=== PATIENT | female | born 1980 | race Caucasian/White ===

== ENCOUNTER 2023-07-22 11:31 | Inpatient (IN) ==
[2023-07-22] MEDS: SODIUM CHLORIDE 0.9% 1,000 ML IV SCH (11:49)
--- NOTE | 2023-07-22 12:00 | Emergency Department Note ---
Impression & Plan Sepsis, Hypomagnesemia, Rigors, Abdominal pain ED Provider Note Provider: Aron Squires MD DATE OF SERVICE: 07/22/2023 CHIEF COMPLAINT: Abdominal pain, fever, chills HISTORY OF PRESENT ILLNESS: Patient is a 42-year-old female past medical history significant for uterine ablation on 07/17 performed without complication at [facility] with [facility]. On Sunday developed abdominal pain seen in the ER at [facility] by report. States she had a CT and things were okay and she went home. Was instantly noted to have ovarian cyst by her report. Into bed yesterday but today significant worsened abdominal pain throughout the day. Oxycodone minimally helped last night but she did not sleep well. Developed uncontrollable shaking this afternoon and felt quite warm. Febrile upon arrival. Denies cough or cold symptoms. Denies significant chest pain. Pain in the mid upper abdomen out of the lower abdomen. Denies significant vaginal bleeding or cramping. Pain does radiate to the back to some degree. Feels sore and has myalgias diffusely. No trauma or falls. Did have a bit of food today. Did have some ibuprofen around 7 AM. Does report some headache. PAST MEDICAL HISTORY: As noted above MEDICATIONS: Reviewed home meds SOCIAL HISTORY: , non-smoker PHYSICAL EXAM: GENERAL: alert and oriented fatigued in appearance at bedside Head: normocephalic and atraumatic EYES: No injection, discharge or icterus. NECK: Trachea midline. ENT: Mucous membranes pink and moist. LUNGS: Airway patent. No retractions. Breath sounds clear HEART: Regular rate and rhythm. No chest wall tenderness ABDOMEN: Soft but diffusely tender particular in the lower abdomen. SKIN: Acyanotic, warm, dry, without rashes EXTREMITIES: Without swelling, tenderness or deformity NEUROLOGICAL: No focal deficits moves all extremities. No aphasia. No facial droop or slurred speech. EK bpm normal sinus rhythm. No PVC or PAC. No acute ST segment elevation or depression with a QTc of 390 CONTINUOUS CARDIAC MONITORING: was ordered and showed a heart rate of 90s-100s bpm in sinus tachycardia is normal sinus rhythm Patient's laboratory studies and imaging reviewed. Differential includes Appendicitis, ovarian cyst, ovarian torsion, ectopic , TOA, PID, infections, diverticulitis, UTI, obstruction, mesenteric ischemia, aortic pathology, inflammatory bowel disease, renal colic, PUD, pancreatitis, biliary pathology, hernia, volvulus, constipation, as well as other pathologies. IMPRESSION/MEDICAL DECISION MAKING: Febrile upon arrival. Borderline tachycardia. Severe abdominal pain. Describes symptoms consistent with rigors. Recent uterine ablation. No laparoscopy or laparotomy or abdominal wounds. Denies significant bleeding here. Abdominal pain however and concerning for possible intra-abdominal infection. Denies given respiratory issues and not hypoxic. Given IV fluids as well as Tylenol for fever and fentanyl for pain. Blood cultures lactate ordered as well as labs. [id number] blood work obtained and emergently sent for CT scan of the abdomen pelvis to further elucidate symptoms and look for any possible abscess or etiology of her symptoms. Records via case management from the [facility] system obtained. Sunday at [facility] the patient had an abdominal CT reporting showing nonspecific likely enteritis with a small amount of free fluid in the pelvis and an abdominal ultrasound showing a complex fluid in the uterine cavity and a small amount of likely physiological free fluid. Patient white blood cell count of 12 at that time. Operative report from Dr. Benavides indicates the patient had removal of IUD, D&C with hysteroscopy as well as a MyoSure and NovaSure ablation on the third. Blood work here today without significant anemia hemoglobin of 12.6 on the formal CBC. Leukopenia of 2.08 and given the patient's fever and this I am concerned she has sepsis. Seems more than 30 mL/kg IV fluid. Rigors are concerning for possible bacteremia. Discussed with pharmacy and initially will cover with clindamycin given allergy profile and possible intra-abdominal source. It appears the patient according to pharmacy also has some cephalosporin prescriptions in the past and will trial a course of cefepime for tract including pseudomonal coverage. Procalcitonin elevated at 1.15. Dose of vancomycin to be given as well. Mild hypomagnesemia and given some supplementation. No severe electrolyte abnormalities otherwise or signs of renal dysfunction. Urinalysis appears more contaminated than truly infected. CT abdomen pelvis today per radiology shows evidence of the endometrium for ablation with right ovarian cyst. Clinically I do not believe this represents torsion at this time. Patient on reassessment slightly improving temperature no longer with rigors blood pressure around 100 systolic. Denies significant abdominal pain at this point. Did reach out discussed with [facility] RN PATIENT CARE on- call here given her recent postoperative state from the uterine ablation. Do have significant concern for sepsis as well as possible bacteremia given her presentation with rigors and fever. Again does not appear to be suffering from primary pulmonary complaint and does not appear meningitic. Given her labs and presentation is she requires further care and observation here at the hospital pending her blood cultures further elucidation of the exact etiology of her sepsis. Hospitalist contacted. DIAGNOSIS: Sepsis, lower abdominal pain, rigors, hypomagnesemia, leukopenia, elevated procalcitonin DISPOSITION: Hospitalist will evaluate Patient was agreeable with this plan. Critical Care I have personally spent 37 minutes of critical care time in the direct management of this patient. This includes bedside care, interpretation of diagnostic studies, and testing, discussion with consultants, patient, and family members, and other required patient management activities. These 37 minutes is in excess of all separately billable procedures. Past Med/Surg History Social History Smoking Status: Never smoker Preferred Language: Pakistani Feels Safe at Home: Yes Allergies Allergies Allergy/AdvReac Type Severity Reaction Status Date / Time amoxicillin Allergy Hives Verified 07/22/23 11:49 erythromycin base Allergy Hives Verified 07/22/23 11:49 Penicillins Allergy Hives Verified 07/22/23 11:49 Results & Data (ED) Vital Signs Vital Signs - 24 hr 07/22/23 11:35 07/22/23 11:36 07/22/23 11:36 Temperature 39 C H Temperature Source Oral Pulse Rate 98 H 99 H Pulse Rate from SpO2 Sensor Pulse Rhythm Regular Pulse Strength Normal Respiratory Rate 18 21 Respiratory Effort / Characteristics Non-Labored Respiratory Depth Normal Respiratory Pattern Regular Blood Pressure 127/85 127/85 Blood Pressure Mean 93 99 Blood Pressure Position Lying Pulse Oximetry 98 Oxygen Delivery Method Room Air Sepsis Recent Fever Within 48 Hours Yes Sepsis New/Unexplained Change in Mental Status No Sepsis Action Taken by Nursing No Action Required 07/22/23 11:38 07/22/23 11:50 07/22/23 12:00 Temperature Temperature Source Pulse Rate 100 H 93 H 102 H Pulse Rate from SpO2 Sensor Pulse Rhythm Pulse Strength Respiratory Rate 27 H 18 Respiratory Effort / Characteristics Respiratory Depth Respiratory Pattern Blood Pressure Blood Pressure Mean Blood Pressure Position Pulse Oximetry Oxygen Delivery Method Sepsis Recent Fever Within 48 Hours Sepsis New/Unexplained Change in Mental Status Sepsis Action Taken by Nursing 07/22/23 12:10 07/22/23 12:20 04/07/24 12:30 Temperature Temperature Source Pulse Rate 105 H 103 H 96 H Pulse Rate from SpO2 Sensor 97 H Pulse Rhythm Pulse Strength Respiratory Rate 19 17 17 Respiratory Effort / Characteristics Respiratory Depth Respiratory Pattern Blood Pressure Blood Pressure Mean Blood Pressure Position Pulse Oximetry 93 Oxygen Delivery Method Sepsis Recent Fever Within 48 Hours Sepsis New/Unexplained Change in Mental Status Sepsis Action Taken by Nursing 07/22/23 12:52 07/22/23 13:00 07/22/23 13:02 Temperature 38.4 C H Temperature Source Oral Pulse Rate 109 H 97 H Pulse Rate from SpO2 Sensor 99 H Pulse Rhythm Pulse Strength Respiratory Rate 12 22 Respiratory Effort / Characteristics Respiratory Depth Respiratory Pattern Blood Pressure 100/59 L Blood Pressure Mean 72 Blood Pressure Position Pulse Oximetry 92 Oxygen Delivery Method Sepsis Recent Fever Within 48 Hours Sepsis New/Unexplained Change in Mental Status Sepsis Action Taken by Nursing Laboratory Data 07/22/23 11:49 07/22/23 11:49 Lab Results 07/22/23 07/22/23 07/22/23 Range/Units 11:49 11:50 12:01 WBC 2.08 L (4.8-10.8) K/ul RBC 4.16 L (4.20-5.40) M/uL Hgb 12.6 (12.0-16.0) g/dl POC Hgb 9.5 L (12.0-16.0) g/dl Hct 37.1 (37.0-47.0) % POC Hct 28 L (37-47) % MCV 89.2 (80.0-100.0) fL MCH 30.3 (25.0-34.0) pg MCHC 34.0 (32.0-36.0) g/dL RDW Std Deviation 41.1 (36.4-46.3) fL RDW Coeff of Rigoberto 12.5 (11.5-14.5) % Plt Count 138 (130-400) K/uL MPV 11.0 (9.4-12.4) fL Immature Gran % (Auto) 0.5 % Neut % (Auto) 86.9 % Lymph % (Auto) 11.1 % Winn % (Auto) 0.5 % Eos % (Auto) 0.0 % Baso % (Auto) 1.0 % Neut # (Auto) 1.81 (1.40-6.50) K/uL Lymph # (Auto) 0.23 L (1.20-3.40) K/uL Winn # (Auto) 0.01 L (0.11-0.59) K/uL Eos # (Auto) 0.00 (0.00-0.50) K/uL Baso # (Auto) 0.02 (0.00-0.20) K/uL Immature Gran # (Auto) 0.01 (0.01-0.20) K/uL Toxic Vacuolation 1+ POC Sodium 141 (135-144) mmol/L Sodium 136 (136-145) mmol/L POC Potassium 3.0 L (3.3-5.0) mmol/L Potassium 3.7 (3.5-5.1) mmol/L POC Chloride 107 (101-112) mmol/L Chloride 104 (98-107) mmol/L Carbon Dioxide 26 (21-32) mmol/L POC Total CO2 19 L (24-31) mmol/L Anion Gap 6 (3-11) POC Anion Gap 19.0 (16-25) mmol/L POC BUN 4 L (7-18) mg/dl BUN 7 (6-23) mg/dl Creatinine 0.60 (0.6-1.2) mg/dl POC Creatinine 0.4 L (0.6-1.3) mg/dl Est Cr Clr Drug Dosing 116.2 ml/min Est GFR ( Amer) 132.1 ml/min Est GFR (Non-Af Amer) 114.0 ml/min BUN/Creatinine Ratio 11.7 (10-20) Glucose 96 (70-99(Fasting)) mg/dl POC Glucose (other) 81 (70-99) mg/dl Lactate 1.3 (0.4-2.0) mmol/L Calcium 9.2 (8.6-10.3) mg/dl POC Ioniz Calcium Lucien 1.04 L (1.12-1.32) mmol/l Magnesium 1.5 L (1.7-2.4) mg/dl Total Bilirubin 0.4 (0.2-1.0) mg/dl Direct Bilirubin 0.0 (0-0.2) mg/dl AST 31 (13-39) U/L ALT 31 (7-52) U/L Alkaline Phosphatase 51 (34-104) U/L Troponin I High Sens 5.3 (0-14) pg/ml Total Protein 7.6 (6.0-8.3) gm/dl Albumin 4.2 (3.4-5.0) gm/dl Lipase 17 (11-82) U/L Procalcitonin 1.15 H (0-0.5) ng/ml HCG, Qual Negative (Negative) Urine Color Urine Appearance (Clear) Urine pH (4.5-7.5) Ur Specific Girard (1.000-1.030) Urine Protein (Negative) Urine Glucose (UA) (Negative) Urine Ketones (Negative) Urine Blood (Negative) Urine Nitrite (Negative) Urine Bilirubin (Negative) Urine Urobilinogen (Negative) Ur Leukocyte Esterase (Negative) Urine WBC (Auto) (0-5) /hpf Urine RBC (Auto) (0-4) /hpf U Hyaline Cast (Auto) (0-5) /lpf U Epithel Cells (Auto) (0-5) /lpf Urine Bacteria (Auto) (Negative) 07/22/23 Range/Units 12:53 WBC (4.8-10.8) K/ul RBC (4.20-5.40) M/uL Hgb (12.0-16.0) g/dl POC Hgb (12.0-16.0) g/dl Hct (37.0-47.0) % POC Hct (37-47) % MCV (80.0-100.0) fL MCH (25.0-34.0) pg MCHC (32.0-36.0) g/dL RDW Std Deviation (36.4-46.3) fL RDW Coeff of Rigoberto (11.5-14.5) % Plt Count (130-400) K/uL MPV (9.4-12.4) fL Immature Gran % (Auto) % Neut % (Auto) % Lymph % (Auto) % Winn % (Auto) % Eos % (Auto) % Baso % (Auto) % Neut # (Auto) (1.40-6.50) K/uL Lymph # (Auto) (1.20-3.40) K/uL Winn # (Auto) (0.11-0.59) K/uL Eos # (Auto) (0.00-0.50) K/uL Baso # (Auto) (0.00-0.20) K/uL Immature Gran # (Auto) (0.01-0.20) K/uL Toxic Vacuolation POC Sodium (135-144) mmol/L Sodium (136-145) mmol/L POC Potassium (3.3-5.0) mmol/L Potassium (3.5-5.1) mmol/L POC Chloride (101-112) mmol/L Chloride (98-107) mmol/L Carbon Dioxide (21-32) mmol/L POC Total CO2 (24-31) mmol/L Anion Gap (3-11) POC Anion Gap (16-25) mmol/L POC BUN (7-18) mg/dl BUN (6-23) mg/dl Creatinine (0.6-1.2) mg/dl POC Creatinine (0.6-1.3) mg/dl Est Cr Clr Drug Dosing ml/min Est GFR ( Amer) ml/min Est GFR (Non-Af Amer) ml/min BUN/Creatinine Ratio (10-20) Glucose (70-99(Fasting)) mg/dl POC Glucose (other) (70-99) mg/dl Lactate (0.4-2.0) mmol/L Calcium (8.6-10.3) mg/dl POC Ioniz Calcium Lucien (1.12-1.32) mmol/l Magnesium (1.7-2.4) mg/dl Total Bilirubin (0.2-1.0) mg/dl Direct Bilirubin (0-0.2) mg/dl AST (13-39) U/L ALT (7-52) U/L Alkaline Phosphatase (34-104) U/L Troponin I High Sens (0-14) pg/ml Total Protein (6.0-8.3) gm/dl Albumin (3.4-5.0) gm/dl Lipase (11-82) U/L Procalcitonin (0-0.5) ng/ml HCG, Qual (Negative) Urine Color Yellow Urine Appearance Clear (Clear) Urine pH 7.0 (4.5-7.5) Ur Specific Girard 1.013 (1.000-1.030) Urine Protein Negative (Negative) Urine Glucose (UA) Negative (Negative) Urine Ketones Negative (Negative) Urine Blood 1+ H (Negative) Urine Nitrite Negative (Negative) Urine Bilirubin Negative (Negative) Urine Urobilinogen Negative (Negative) Ur Leukocyte Esterase Trace H (Negative) Urine WBC (Auto) 5-10 H (0-5) /hpf Urine RBC (Auto) 0-4 (0-4) /hpf U Hyaline Cast (Auto) 0 (0-5) /lpf U Epithel Cells (Auto) >30 H (0-5) /lpf Urine Bacteria (Auto) Negative (Negative) Administered Medications Discontinued Medications Fentanyl Citrate (Fentanyl Citrate Pf 100 Mcg/2 Ml Vial) 50 mcg IV NOW STA Stop: 07/22/23 12:00 Last Admin: 07/22/23 12:04 Dose: 50 mcg Documented By: NM Sodium Chloride (Nss) 1,000 mls @ 999 mls/hr IV .Q1H1M RAJ Stop: 07/22/23 12:45 Last Infusion: 07/22/23 12:50 Dose: Infused Documented By: Admin: 07/22/23 11:49 Dose: 999 mls/hr Documented By: NM Sodium Chloride (Nss) 1,000 mls @ 999 mls/hr IV .Q1H1M ONE Stop: 07/22/23 12:59 Last Infusion: 07/22/23 13:16 Dose: Infused Documented By: Admin: 07/22/23 12:05 Dose: 999 mls/hr Documented By: NM Acetaminophen (Ofirmev) 1,000 mg in 100 mls @ 400 mls/hr IV NOW STA Stop: 07/22/23 12:13 Last Infusion: 07/22/23 12:25 Dose: Infused Documented By: [facility] [place] Admin: 07/22/23 12:04 Dose: 400 mls/hr Documented By: NM Clindamycin Phosphate (Cleocin/D5w) 900 mg in 50 mls @ 100 mls/hr IV NOW ONE Stop: 07/22/23 13:00 Last Infusion: 07/22/23 13:31 Dose: Infused Documented By: Admin: 07/22/23 13:01 Dose: 100 mls/hr Documented By: NM Cefepime HCl (Maxipime) 2,000 mg in 20 mls @ 5 mls/min IV NOW STA; Protocol Stop: 07/22/23 12:43 Last Admin: 07/22/23 12:55 Dose: 5 mls/min Documented By: NM Magnesium Sulfate/Dextrose (Magnesium Sulfate / D5w) 1 gm in 100 mls @ 200 mls/hr IV Q30M RAJ Stop: 07/22/23 13:59 Last Admin: 07/22/23 13:35 Dose: 200 mls/hr Documented By: Infusion: 07/22/23 13:35 Dose: Infused Documented By: Admin: 07/22/23 13:09 Dose: 200 mls/hr Documented By: CIARA Ioversol (Optiray 320 100ml) 93 ml IV ONCE ONE Stop: 07/22/23 12:46 Last Admin: 07/22/23 12:45 Dose: 93 ml Documented By: EDK Imaging Data Radiologist's Impression: Chest X-Ray 07/22/23 11:45 XR chest 1V portable CLINICAL HISTORY: Sepsis TECHNIQUE: Single frontal radiograph of the chest was obtained. Comparison: None available at the time of this dictation. FINDINGS: No lines and tubes are seen. The cardiomediastinal silhouette is normal. Prominence and cephalization of the vasculature is seen. No evidence of pleural effusion or pneumothorax. IMPRESSION: No acute abnormalities and in particular no radiographic evidence of pneumonia. Mild pulmonary vascular congestion. ACT 112: Negative or not required by law. Electronically signed by: Bart Ashley M.D. 07/22/2023 2:01 PM Abdomen/Pelvis CT 07/22/23 12:05 CT abd pelvis IV con only CLINICAL HISTORY: fever, severe abd pain, s/p uterine ablation tuesd TECHNIQUE: Helical axial images of the abdomen and pelvis were obtained and displayed. Automated dose lowering techniques and/or adjustment according to patient size were utilized for this exam. This exam was performed with intravenous contrast. CT DOSE: 741.29 mGy.cm COMPARISON: None available at the time of this dictation. FINDINGS: Lower chest: Bilateral breast implants are seen. Minimal atelectasis is seen. Liver: Unremarkable. No focal lesions are seen. Gallbladder and biliary tree: No calcified gallstones. Normal caliber wall. No intra- or extrahepatic biliary ductal dilation. Pancreas: Unremarkable, no focal lesions. Spleen: Unremarkable. Adrenals: Unremarkable. Kidneys and ureters: Unremarkable. Bladder: Unremarkable. Reproductive organs: Thickening of the endometrium is noted measuring up to 24 mm. Rim-enhancing lesion is seen in the right adnexa. Bowel: The appendix is normal. Lymph nodes Retroperitoneal: Unremarkable. Pelvic: Unremarkable. Mesenteric: Unremarkable. Peritoneum: Mild free fluid is seen. Vessels: Unremarkable. Abdominal wall: Unremarkable. Bones: Unremarkable. IMPRESSION: Thickened endometrium is likely secondary to recent uterine ablation. Right adnexal lesion likely represents an involuting ovarian cyst. No acute abnormalities are seen. ACT 112: Negative or not required by law. Electronically signed by: Bart Ashley M.D. 07/22/2023 1:31 PM Discharge Plan Visit Data Chief Complaint: Illness ED Provider: Aron Squires Discharge Problem: Sepsis, Hypomagnesemia, Rigors, Abdominal pain Patient Disposition: Being Evaluated by Hospitalist Forms Stand Alone Forms: [facility] Referrals Referrals: PCP,NO [Physician] -
[2023-07-22] MEDS: ACETAMINOPHEN 1,000 MG/100 ML VIAL IV STA (12:04)
[2023-07-22] MEDS: fentaNYL citrate PF 100 MCG/2 ML VIAL IV STA (12:04)
[2023-07-22] MEDS: SODIUM CHLORIDE 0.9% 1,000 ML IV ONE (12:05)
[2023-07-22 12:17] LABS: iSTAT Creatinine 0.4 mg/dl (0.6-1.3); iSTAT Hemoglobin 9.5 g/dl (12.0-16.0); iSTAT Ionized Calcium 1.04 mmol/l (1.12-1.32)
[2023-07-22 12:26] LABS: Hematocrit (blood only) 37.1 % (37.0-47.0); Hemoglobin 12.6 g/dl (12.0-16.0); Mean Corpuscular Hemoglobin 30.3 pg (25.0-34.0); Mean Corpuscular Volume 89.2 fL (80.0-100.0); Platelet Count 138 K/uL (130-400); RDW Coefficient of Variation 12.5 % (11.5-14.5); RDW Standard Deviation 41.1 fL (36.4-46.3); Red Blood Count 4.16 M/uL (4.20-5.40); White Blood Count 2.08 K/ul (4.8-10.8)
[2023-07-22 12:45] LABS: Albumin Level 4.2 gm/dl (3.4-5.0); BUN Creatinine Ratio 11.7 (10-20); Bilirubin,Total 0.4 mg/dl (0.2-1.0); Calcium 9.2 mg/dl (8.6-10.3); Creatinine Clr Calc Pharmacy 116.2 ml/min; Est GFR (African American) 132.1 ml/min; Magnesium 1.5 mg/dl (1.7-2.4); Potassium 3.7 mmol/L (3.5-5.1); Total Protein 7.6 gm/dl (6.0-8.3)
[2023-07-22] MEDS: OPTIRAY 320 100ml IV ONE (12:45)
[2023-07-22 12:51] LABS: Troponin I High Sensitivity 5.3 pg/ml (0-14)
[2023-07-22 12:51] LABS: Pregnancy Test, Serum Negative (Negative)
[2023-07-22 12:53] LABS: Basophils # (auto) 0.02 K/uL (0.00-0.20); Immature Granulocytes # (auto) 0.01 K/uL (0.01-0.20); Immature Granulocytes % (auto) 0.5 %; Lymphocytes # (auto) 0.23 K/uL (1.20-3.40); Lymphocytes % (auto) 11.1 %; Monocytes # (auto) 0.01 K/uL (0.11-0.59); Monocytes % (auto) 0.5 %; Neutrophils # (auto) 1.81 K/uL (1.40-6.50); Neutrophils % (auto) 86.9 %; Toxic Vacuolation 1+
[2023-07-22] MEDS: CEFEPIME 2,000 MG/20 ML VIAL IV STA (12:55)
[2023-07-22] MEDS: CLINDAMYCIN/D5W 900 MG/50 ML BAG IV ONE (13:01)
[2023-07-22] MEDS: MAGNESIUM SULFATE / D5W 1 GM/100 ML BAG IV SCH (13:09)
[2023-07-22 13:18] LABS: Appearance Urine Clear (Clear); Bacteria Urine Automated Negative (Negative); Bilirubin Urine Negative (Negative); Blood Urine 1+ (Negative); Cast Urine Automated 0 /lpf (0-5); Color Urine Yellow; Epithelial Cell Urine Auto >30 /lpf (0-5); Glucose Urine UA Negative (Negative); Ketones Urine Negative (Negative); Leukocyte Esterase Urine Trace (Negative); Nitrite Urine Negative (Negative); Protein Urine Negative (Negative); RBC Urine Automated 0-4 /hpf (0-4); Specific Gravity Urine 1.013 (1.000-1.030); Urobilinogen Urine Negative (Negative)
--- NOTE | 2023-07-22 13:33 | CT Scan Report ---
CT abd pelvis IV con only CLINICAL HISTORY: fever, severe abd pain, s/p uterine ablation tuesd TECHNIQUE: Helical axial images of the abdomen and pelvis were obtained and displayed. Automated dose lowering techniques and/or adjustment according to patient size were utilized for this exam. This e xam was performed with intravenous contrast. CT DOSE: 741.29 mGy.cm COMPARISON: None available at the time of this dictation. FINDINGS: Lower chest: Bilateral breast implants are seen. Minimal atelectasis is seen. Liver: Unremarkable. No focal lesions are seen. Gallbladder and biliary tree: No calcified gallstones. Normal caliber wall. No intra- or extrahepatic biliary ductal dilation. Pancreas: Unremarkable, no focal lesions. Spleen: Unremarkable. Adrenals: Unremarkable. Kidneys and ureters: Unremarkable. Bladder: Unremarkable. Reproductive organs: Thickening of the endometrium is noted measuring up to 24 mm. Rim-enhancing lesi on is seen in the right adnexa. Bowel: The appendix is normal. Lymph nodes Retroperitoneal: Unremarkable. Pelvic: Unremarkable. Mesenteric: Unremarkable. Peritoneum: Mild free fluid is seen. Vessels: Unremarkable. Abdominal wall: Unremarkable. Bones: Unremarkable. IMPRESSION: Thickened endometrium is likely secondary to recent uterine ablation. Right adnexal lesion likely rep resents an involuting ovarian cyst. No acute abnormalities are seen. ACT 112: Negative or not required by law. Electronically signed by: Bart Ashley M.D. 07/22/2023 1:31 PM
[2023-07-22] MEDS ORDERED: VANCOMYCIN CONSULT ACTIVE PRN (13:41)
--- NOTE | 2023-07-22 14:02 | XRay Report ---
XR chest 1V portable CLINICAL HISTORY: Sepsis TECHNIQUE: Single frontal radiograph of the chest was obtained. Comparison: None available at the time of this dictation. FINDINGS: No lines and tubes are seen. The cardiomediastinal silhouette is normal. Prominence and cephalization of the vasculature is seen. No evidence of pleural effusion or pneumothorax. IMPRESSION: No acute abnormalities and in particular no radiographic evidence of pneumonia. Mild pulmonary vascul ar congestion. ACT 112: Negative or not required by law. Electronically signed by: Bart Ashley M.D. 07/22/2023 2:01 PM
[2023-07-22] MEDS ORDERED: MAGNESIUM HYDROXIDE SUSP 30 ML UDC PO PRN (14:09)
[2023-07-22] MEDS ORDERED: POLYETHYLENE (MIRALAX) 17 GM PACK PO PRN (14:09)
[2023-07-22] MEDS ORDERED: ALUMINUM/MAGNESIUM SUSP 30 ML UDC PO PRN (14:09)
--- NOTE | 2023-07-22 14:19 | History & Physical Report ---
Date of Service July 22, 2023 Assessment & Plan (1) Sepsis: (2) Abdominal pain: (3) Rigors: (4) Hypomagnesemia: Plan Ms. Oates is a 42 year old female that presents to the ED today after experiencing abdominal pain and rigors. She recently underwent a uterine ablation and D/C with IUD removal at [facility] on 07/16 without complications. After her procedure she felt okay and only had light bleeding. Sunday morning at 0300 she was experiencing intense abdominal pain mid abdomen down to her suprapubic area and could not get out of bed feeling so wiped. She did manage to get to the bathroom but lowered herself to all fours as she was nauseous and dizzy. She feels as though she did pass out but did not lose consciousness which led her to proceed to [facility] ED where she received a full workup including blood work, an abdominal CT and transvaginal ultrasound. Her WBC on 07/19 was 12.95 and today is 2.08; atypical presentation. Urinalysis revealed some bacteria and WBC. She was released from the ED and started on Oxycodone for pain. She only has taken one Oxycodone. She reports that she felt increasing pain and decided to return to the ED, coming to [facility]. 07/19 TVUS performed at [facility] as outlined above and below. Upon arrival, she was tachycardic low 100's, hypotensive mid 90's systolic and febrile 103 with an elevated procalcitonin of 1.15. Hypomg+ 1.5. HCG and Troponin negative. Today, Abdominal/pelvic CT suggestive of thickening endometrium s/p ablation and an ovarian cyst but no perforation noted. Pt will be admitted for further evaluation and management of severe sepsis presentation. Known PCN allergy. 2 LNSB given in ED, will continue LR @ 125ml/hour, Cefepime, Clindamycin, and Vancomycin initiated in the ED. Will continue IV abx and adjust based on culture results. MRSA screen and lactate ordered. Replace Mg+ and recheck in AM. Tylenol for recurrent fevers. Will r/o flu. Will trend BMP/CBC. Suspect patient could have bacteremia given rigors as well. Severe sepsis: Abdominal pain: Rigors: Acute Status post uterine ablation with D&C and IUD removal [facility] on 07/16 without complications Meets sepsis criteria with leukopenia, tachycardia, hypotension, febrile and elevated procalcitonin. 07/19 WBC 12.95 and today 2.08, leukopenic Lactate 1.7, procalcitonin 1.15 hCG negative 07/19 TVUS at [facility]: Slightly complex fluid in uterine cavity may be associated with recent procedure. Right ovarian cyst likely corpus luteum cyst. There is a small amount of free pelvic fluid present, likely physiologic in premenopausal female. Today Abdominal/pelvic CT suggestive of thickening endometrium s/p ablation and an ovarian cyst but no perforation noted 2LNSB administered in ED; continue LR @ 125ml/hour Started on Cefepime, Clindamycin, and Vancomycin in ED; cont for now and adjust based on culture results Will add on flu Tylenol PRN for fever Add MRSA screen OB consult placed Hypomagnesemia: Acute Serum mag 1.5; replaced with 2 g in ED Will recheck in a.m. Disposition: PCP: Dr. Lawrence Code Status: Full code VTE Prophylaxis: Lovenox SQ I spent a total of 87 minutes coordinating, documenting, and providing care for this patient excluding time spent in the performance of separately billed services. All of the aforementioned completed while collaborating with the assigned attending physician for a full treatment plan. Please see their addendum for further details. History of Present Illness Chief Complaint: fever/chills/rigors Primary Care Provider: Arthur Lawrence MD Ms. Oates is a 42 year old female that presents to the ED today after experiencing abdominal pain and rigors. She recently underwent a uterine ablation and D/C with IUD removal at [facility] on 07/16 without complications. After her procedure she felt okay and only had light bleeding. Sunday morning at 03 100 she was experiencing intense abdominal pain mid abdomen down to her suprapubic area and could not get out of bed feeling so wiped. She did manage to get to the bathroom but lowered herself to all fours as she was nauseous and dizzy. She feels as though she did pass out but did not lose consciousness which led her to proceed to [facility] ED where she received a full workup including blood work, an abdominal CT and transvaginal ultrasound. Her WBC on 07/19 was 12.95 and today is 2.08; atypical presentation. Urinalysis revealed some bacteria and WBC. She was released from the ED and started on Oxycodone for pain. She only has taken one Oxycodone. She reports that she felt increasing pain and decided to return to the ED, coming to [facility]. 07/19 TVUS: Uterus: Uterus measures 10 x 4.5 x 5.6 cm. Mildly complex fluid in the endometrial cavity. Endometrial stripe 1.1 cm. Right ovary/adnexa: Right ovary 3.7 x 3.1 x 2.1 cm. Corpus luteum cyst measuring 2 x 1.7 x 1.8 cm and right ovary Left ovary/adnexa: Left ovary 2.7 x 2.9 x 1.8 cm. Appearance unremarkable. Intraperitoneal space: Small amount of fluid in the cul-de-sac may be physiologic Urinary bladder: Normal. IMPRESSION: 1. Slightly complex fluid in uterine cavity may be associated with recent procedure. Recommend clinical correlation. 2. Right ovarian cyst likely corpus luteum cyst. 3. There is a small amount of free pelvic fluid present, likely physiologic in a premenopausal female. Upon arrival, she was tachycardic low 100's, hypotensive mid 90's systolic and febrile 103 with an elevated procalcitonin of 1.15. Hypomg+ 1.5. HCG and Troponin negative. Denies tobacco, alcohol and recreational drug use. Today, Abdominal/pelvic CT suggestive of thickening endometrium s/p ablation and an ovarian cyst but no perforation noted. ED discussed with LEARNING TECHNOLOGIST Dr. Arzola who suggested IV abx. She has shown improvement since her arrival and is no longer having rigors or fever. She is AAOx4, pale, dry mucus membranes, S1S2, no murmer, no swelling, CTA lung sounds, Abdomen distended but soft, tender on palpation, active bowel sounds x4, burning sensation with urination, no N/V/D while here. No recent falls or trauma. Pt will be admitted for further evaluation and management of severe sepsis presentation. Known PCN allergy. 2 LNSB given in ED, will continue LR @ 125ml/hour, Cefepime, Clindamycin, and Vancomycin initiated in the ED. Will continue IV abx and adjust based on culture results. MRSA screen and lactate ordered. Replace Mg+ and recheck in AM. Tylenol for recurrent fevers. Will r/o flu. Will trend BMP/CBC. Suspect patient could have bacteremia given rigors as well. Allergies Allergy/AdvReac Type Severity Reaction Status Date / Time amoxicillin Allergy Hives Verified 07/22/23 11:49 erythromycin base Allergy Hives Verified 07/22/23 11:49 Penicillins Allergy Hives Verified 07/22/23 11:49 Home Medications Medication Instructions Recorded Confirmed Type lactobacillus combination no.4 3 3,000 mmu cells PO QAM 07/22/23 07/22/23 History billion cell capsule (Probiotic) multivitamin 1 tab PO QAM 07/22/23 07/22/23 History Past Med/Surg History Medical History (Updated 07/22/23 @ 15:44 by JIMENEZ Matos) Post endometrial ablation syndrome Raynauds disease Jayesh-Danlos syndrome Fibromyalgia Family History (Updated 07/22/23 @ 15:45 by JIMENEZ Matos) Other Dyslipidemia Osteoarthritis Social History (Updated 07/22/23 @ 15:45 by JIMENEZ Matos) Smoking Status: Never smoker Second Hand Exposure: No; Do You Dip or Chew Tobacco: No; Hx Alcohol Use: No Hx Substance Use: No Preferred Language: Greenlandic Feels Safe at Home: Yes Review of Systems Review of Systems: Neuro: (-) Falls, trauma, slurred speech HEENT: (-) JACQUES, dizziness, dysphagia, visual or auditory changes CV: (-) CP, palpitations, swelling Resp: (-) SOB GI: (-) appetite changes, N/V/D, bowel changes : (+) dysuria Skin: (-) rashes Psych: (-) anxiety, depression Physical Exam Physical Exam: Neuro: AAOx4, PERRLA, no aphagia, memory changes, CNII-XII grossly intact HEENT: head normocephalic, dry mucus membranes CV: S1/S2, (-) M/G/R, (-) edema, cap refill < 3 seconds Resp: Lungs CTA in all tom. On RA GI: Abdomen distended, soft and tender, Ax4 bowel sounds, (-) CVA tenderness Musculoskeletal: 5/5 B/L UE strength, 5/5 B/L LE strength. No gait disturbance Skin: (-) rashes , (-) erythema. Psych: euthymic mood Results & Data Results & Data Vital Signs (Past 12 Hours) Vital Signs Temp Pulse Resp BP Pulse Ox O2 Del Method 07/22/23 13:02 38.4 C H 07/22/23 13:00 97 H 22 100/59 L 92 07/22/23 12:52 109 H 12 07/22/23 12:30 96 H 17 93 07/22/23 12:20 103 H 17 07/22/23 12:10 105 H 19 07/22/23 12:00 102 H 18 07/22/23 11:50 93 H 27 H 07/22/23 11:38 100 H 07/22/23 11:36 99 H 21 07/22/23 11:36 39 C H 98 H 18 127/85 98 Room Air 07/22/23 11:35 127/85 Laboratory Results Short CBC 07/22/23 Range/Units 11:49 WBC 2.08 L (4.8-10.8) K/ul Hgb 12.6 (12.0-16.0) g/dl Hct 37.1 (37.0-47.0) % Plt Count 138 (130-400) K/uL BMP 07/22/23 11:49 Sodium 136 Potassium 3.7 Chloride 104 Carbon Dioxide 26 BUN 7 Creatinine 0.60 Glucose 96 Calcium 9.2 Liver Function 07/22/23 Range/Units 11:49 Total Bilirubin 0.4 (0.2-1.0) mg/dl Direct Bilirubin 0.0 (0-0.2) mg/dl AST 31 (13-39) U/L ALT 31 (7-52) U/L Alkaline Phosphatase 51 (34-104) U/L Albumin 4.2 (3.4-5.0) gm/dl Urine 07/22/23 Range/Units 12:53 Urine Color Yellow Urine Appearance Clear (Clear) Urine pH 7.0 (4.5-7.5) Ur Specific [place] 1.013 (1.000-1.030) Urine Protein Negative (Negative) Urine Glucose (UA) Negative (Negative) Diagnostic Findings Chest X-Ray 07/22/23 11:45 XR chest 1V portable CLINICAL HISTORY: Sepsis TECHNIQUE: Single frontal radiograph of the chest was obtained. Comparison: None available at the time of this dictation. FINDINGS: No lines and tubes are seen. The cardiomediastinal silhouette is normal. Prominence and cephalization of the vasculature is seen. No evidence of pleural effusion or pneumothorax. IMPRESSION: No acute abnormalities and in particular no radiographic evidence of pneumonia. Mild pulmonary vascular congestion. ACT 112: Negative or not required by law. Electronically signed by: Bart Ashley M.D. 07/22/2023 2:01 PM Abdomen/Pelvis CT 07/22/23 12:05 CT abd pelvis IV con only CLINICAL HISTORY: fever, severe abd pain, s/p uterine ablation tuesd TECHNIQUE: Helical axial images of the abdomen and pelvis were obtained and displayed. Automated dose lowering techniques and/or adjustment according to patient size were utilized for this exam. This exam was performed with intravenous contrast. CT DOSE: 741.29 mGy.cm COMPARISON: None available at the time of this dictation. FINDINGS: Lower chest: Bilateral breast implants are seen. Minimal atelectasis is seen. Liver: Unremarkable. No focal lesions are seen. Gallbladder and biliary tree: No calcified gallstones. Normal caliber wall. No intra- or extrahepatic biliary ductal dilation. Pancreas: Unremarkable, no focal lesions. Spleen: Unremarkable. Adrenals: Unremarkable. Kidneys and ureters: Unremarkable. Bladder: Unremarkable. Reproductive organs: Thickening of the endometrium is noted measuring up to 24 mm. Rim-enhancing lesion is seen in the right adnexa. Bowel: The appendix is normal. Lymph nodes Retroperitoneal: Unremarkable. Pelvic: Unremarkable. Mesenteric: Unremarkable. Peritoneum: Mild free fluid is seen. Vessels: Unremarkable. Abdominal wall: Unremarkable. Bones: Unremarkable. IMPRESSION: Thickened endometrium is likely secondary to recent uterine ablation. Right adnexal lesion likely represents an involuting ovarian cyst. No acute abnormalities are seen. ACT 112: Negative or not required by law. Electronically signed by: Bart Ashley M.D. 07/22/2023 1:31 PM Code Status & VTE Plan Code Status Full Code in the event of cardiac or respiratory arrest VTE Prophylaxis Plan VTE Prophylaxis will be ordered: Yes Supervising Physician Co-Signing Physician Notes Patient was seen and examined independently at bedside. Chart reviewed. Case discussed with Tona GAONA and agree with the documentation above. In summary, this is a 42 year old female who had uterine ablation with D&C with IUD removal at [facility] on Sunday after which she started having intense abd pain for which she was evaluated at [facility] ER on Sunday and was discharged home on oxycodone but came to our ED today with symptoms concerning for severe sepsis. Labs show leukopenia, elevated procal, BP soft in 90s, tachycardic in 100s. CXR negative. CT A/Pshows Thickened endometrium is likely secondary to recent uterine ablation. Right adnexal lesion likely represents an involuting ovarian cyst but no acute abnormalities are seen. UA noted but no urinary symptoms. Reports surgical site clean and no purulent discharge per vaginum. ED physician spoke with gyne and recommended empiric ABx which was started in ED and will be continued. Also ivf resuscitation given in ED with 2 L bolus. Will admit for severe sepsis post gynecologic procedure r/o bacteremia, continue empiric ABx, ivf, gyne eval, follow blood and urine clx results. Family at bedside. Rest as per the note above. On exam- General: Lying comfortably in bed, not in acute distress, on room air HEENT: EOMI, DALI, MMM Chest: Clear breath sounds bilaterally, no wheezes or crackles CVS: tachycardica, normal heart sounds, no murmur Abdomen: Soft, diffuse generalized tenderness, not distended, normal bowel sounds Neuro: Awake, alert, oriented, conversing well, non focal Extremities: No cyanosis, clubbing or edema
[2023-07-22 14:52] LABS: Phosphorus 2.4 mg/dl (2.5-4.9)
[2023-07-22] MEDS: VANCOMYCIN HCL 1,500 MG in SODIUM CHLORIDE 0.9% 500 ML IV ONE (15:05)
[2023-07-22] MEDS: LACTATED RINGER'S 1,000 ML IV SCH (16:16)
[2023-07-22] MEDS: KETOROLAC TROMETHAMINE 15 MG/ML VIAL IV PRN (16:16)
[2023-07-22] MEDS: ONDANSETRON INJ 2 MG/ML 2 ML VIAL IV PRN (16:20)
[2023-07-22] MEDS: ENOXAPARIN INJ 40 MG/0.4 ML SYR SQ SCH (16:54)
[2023-07-22 17:46] LABS: Influenza A virus by PCR Negative (Neg); Influenza B virus by PCR Negative (Neg); RSV by PCR Negative (Neg); SARS CoV2 RNA(COVID-19) Ceph NEGATIVE (Negative)
--- NOTE | 2023-07-22 18:11 | Pharmacy Report ---
Pharmacy PK ABX Note - Date of Service July 22, 2023 - Assessment and Plan Assessment 42 year old F receiving clindamycin/cefepime/vancomycin for treatment of sepsis/abdominal pain status post uterine ablation (07/16). Pertinent microbiologic data includes: MRSA Nasal Swab pending, blood cultures pending. Day # 1 of antimicrobial therapy. Plan Vancomycin * Loading dose: 1500 mg IV x 1 * Maintenance dose: 1000 mg IV every 8 hours * Regimen is predicted to achieve target AUC/LAKESHA of 400-600 mg/L.hr * Trough level ordered for: 07/24/23 @0530 Pharmacy will continue to follow and will adjust dose/frequency as necessary. Thank you. Pharmacy has transitioned to AUC monitoring for vancomycin. AUC/LAKESHA is the preferred PK/PD target and is associated with decreased risk of nephrotoxicity compared to traditional trough targets.
--- NOTE | 2023-07-22 19:37 | OB/GYN Consultation ---
Date of Consultation July 22, 2023 Assessment & Plan (1) Endomyometritis: 1. Endomyometritis status post endometrial ablation on 07/18/2023. Patient has been started on antibiotics and is improving Plan continue antibiotic treatment Expect pt to continue to improve Thank you for the consult History of Present Illness Reason for Consultation: postop fever Attending Physician: Anuj Adorno MD History of Present Illness Patient is a 42-year-old status post endometrial ablation on 07/18/2023 at [facility]. Surgery was performed by Dr. Benavides and was unremarkable. Patient was discharged home in stable condition. 2 days of the procedure which was 07/20/2023 patient had abdominal discomfort and pain and was seen in the ER at [facility]. She was worked up including CT scan and blood work and discharged home in stable condition with pain medication. Today, 07/22/23 patient presented to emergency room here at [facility] with fever and chills. She was admitted for possible sepsis workup and CERTIFIED DIETARY MANAGER consult is placed. Patient is started on antibiotics and vitals have since improved. 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 Fibromyalgia Family History (Updated 07/22/23 @ 15:45 by JIMENEZ Matos) Other Dyslipidemia Osteoarthritis Social History (Updated 07/22/23 @ 15:45 by JIMENEZ Matos) Smoking Status: Never smoker Second Hand Exposure: No; Do You Dip or Chew Tobacco: No; Hx Alcohol Use: No Hx Substance Use: No Preferred Language: Macedonian Communication Ability: Effective Recordak Operator Required: No Beliefs That Will Affect Care: None Current Living Situation: Family Other Information That Helps Us Care for You: No Feels Safe at Home: Yes Safety Concerns: Feels Safe At This Time Results & Data Vital Signs (Past 12 Hours) Vital Signs Temp Pulse Pulse Resp BP BP Pulse Ox 07/22/23 17:44 107 H 18 98/63 L 97 07/22/23 16:37 36.4 C L 07/22/23 16:35 07/22/23 15:33 109 H 20 96/59 L 99 07/22/23 15:30 102 H 20 97/65 L 96 07/22/23 15:09 109 H 21 99/62 L 98 07/22/23 14:53 37.3 C 07/22/23 14:45 105 H 20 95/68 L 07/22/23 14:30 103 H 16 98/67 L 07/22/23 14:15 98/63 L 07/22/23 14:15 99 H 21 98/63 L 07/22/23 14:00 98 H 26 H 93/60 L 91 07/22/23 13:45 106 H 21 99/61 L 92 07/22/23 13:30 102 H 18 103/61 91 07/22/23 13:15 98 H 17 98/67 L 91 07/22/23 13:02 38.4 C H 07/22/23 13:00 97 H 22 100/59 L 92 07/22/23 12:52 109 H 12 07/22/23 12:30 96 H 17 93 07/22/23 12:20 103 H 17 07/22/23 12:10 105 H 19 07/22/23 12:00 102 H 18 07/22/23 11:50 93 H 27 H 07/22/23 11:38 100 H 07/22/23 11:36 99 H 21 07/22/23 11:36 39 C H 98 H 18 127/85 98 07/22/23 11:35 127/85 Pulse Ox O2 Del Method O2 Del Method 07/22/23 17:44 Room Air 07/22/23 16:37 07/22/23 16:35 96 Room Air 07/22/23 15:33 07/22/23 15:30 07/22/23 15:09 07/22/23 14:53 07/22/23 14:45 07/22/23 14:30 07/22/23 14:15 07/22/23 14:15 07/22/23 14:00 Room Air 07/22/23 13:45 Room Air 07/22/23 13:30 Room Air 07/22/23 13:15 Room Air 07/22/23 13:02 07/22/23 13:00 07/22/23 12:52 07/22/23 12:30 07/22/23 12:20 07/22/23 12:10 07/22/23 12:00 07/22/23 11:50 07/22/23 11:38 07/22/23 11:36 07/22/23 11:36 Room Air 07/22/23 11:35
[2023-07-22] MEDS: CLINDAMYCIN/D5W 900 MG/50 ML BAG IV SCH (20:18)
[2023-07-22] MEDS: ACETAMINOPHEN 325 MG TAB PO PRN (20:36)
[2023-07-22] MEDS: CEFEPIME 2,000 MG in SYRINGE 0 ML IV SCH (21:02)
[2023-07-22] MEDS: PROMETHAZINE HCL 6.25 MG in SODIUM CHLORIDE 0.9% 50 ML IV STA (21:17)
[2023-07-22] MEDS: VANCOMYCIN HCL 1,000 MG in SODIUM CHLORIDE 0.9% 250 ML IV SCH (21:17)
[2023-07-22 21:23] LABS: A calco-baum cmplx NotReported Not Detected (NotDetected); Bact fragilis Not Reported Not Detected (NotDetected); Blood Culture Id Panel See PCR Comment (NotDetected); C auris Not Reported Not Detected (NotDetected); Calbicans Not Reported Not Detected (NotDetected); Candida glabrata Not Reported Not Detected (NotDetected); Candida krusei Not Reported Not Detected (NotDetected); Cneoformans/gatti Not Reported Not Detected (NotDetected); Cparapsilosis Not Reported Not Detected (NotDetected); E cloacae compx Not Reported Not Detected (NotDetected); Efaecalis Not Reported Not Detected (NotDetected); Efaecium Not Reported Not Detected (NotDetected); Enterobacterales Not Reported Not Detected (NotDetected); Escherichia coli Not Reported Not Detected (NotDetected); H influenzae Not Reported Not Detected (NotDetected); K aerogenes Not Reported Not Detected (NotDetected); Koxytoca Not Reported Not Detected (NotDetected); Kpneumoniae grp Not Reported Not Detected (NotDetected); Lmonocyt Not Reported Not Detected (NotDetected); N meningitidis Not Reported Not Detected (NotDetected); P aeruginosa Not Reported Not Detected (NotDetected); Proteus spp Not Reported Not Detected (NotDetected); Salmonella spp Not Reported Not Detected (NotDetected); Smarcescens Not Reported Not Detected (NotDetected); Staph lugdunensis Not Reported Not Detected (NotDetected); Staph spp. Not Reported Not Detected (NotDetected); Staphaureus Not Reported Not Detected (NotDetected); Staphepi Not Reported Not Detected (NotDetected); Stenmaltophilia Not Reported Not Detected (NotDetected); Strep agal(GrpB) Not Reported DETECTED (NotDetected); Strep pneum Not Reported Not Detected (NotDetected); Strep pyog (GrpA) Not Reported Not Detected (NotDetected); Strep spp Not Reported DETECTED (NotDetected); Streptococcus spp DETECTED (NotDetected)
[2023-07-22 21:29] LABS: Streptococcus agalactiae(GrpB) DETECTED (NotDetected)
--- NOTE | 2023-07-23 01:55 | CT Scan Report ---
Exam(s): CT HEAD Without Contrast EXAM: CT Head Without Intravenous Contrast CLINICAL HISTORY: Reason for exam: hong. TECHNIQUE: Axial computed tomography images of the head/brain without intravenous contrast. CTDI is 38.64 mGy and DLP is 547.75 mGy-cm. Automated exposure control was utilized for the study. A dose lowering technique was utilized adhering to the principles of ALARA. COMPARISON: No relevant prior studies available. FINDINGS: Brain: Unremarkable. No hemorrhage. No significant white matter disease. No edema. Ventricles: Unremarkable. No ventriculomegaly. Bones/joints: Unremarkable. No acute fracture. Soft tissues: Unremarkable. Sinuses: Chronic right ethmoid sinusitis and rhinitis. No acute sinusitis. Mastoid air cells: Unremarkable as visualized. No mastoid effusion. IMPRESSION: No evidence of acute intracranial pathology. Electronically signed by: Melissa Martinez MD 07/23/23 01:53 AM
--- NOTE | 2023-07-23 06:09 | Electrocardiogram Report ---
Test Reason : Blood Pressure : / mmHG Vent. Rate : 098 BPM Atrial Rate : 098 BPM P-R Int : 160 ms QRS Dur : 078 ms QT Int : 306 ms P-R-T Axes : 075 049 066 degrees QTc Int : 390 ms Normal sinus rhythm Possible Left atrial enlargement No previous ECGs available Confirmed by Henry Zepeda ([id number]) on 07/23/2023 6:08:52 AM Referred By: Confirmed By:Henry Zepeda
[2023-07-23] MEDS: PROMETHAZINE HCL 6.25 MG in SODIUM CHLORIDE 0.9% 50 ML IV PRN (06:27)
[2023-07-23 08:10] LABS: Albumin Globulin Ratio 1.2 (0.9-2); Albumin Level 3.1 gm/dl (3.4-5.0); BUN Creatinine Ratio 15.8 (10-20); Bilirubin,Total 0.6 mg/dl (0.2-1.0); Calcium 7.7 mg/dl (8.6-10.3); Creatinine Clr Calc Pharmacy 122.3 ml/min; Est GFR (African American) 134.4 ml/min; Globulin 2.5 gm/dl (2.5-4.0); Magnesium 1.9 mg/dl (1.7-2.4); Potassium 3.3 mmol/L (3.5-5.1); Total Protein 5.6 gm/dl (6.0-8.3)
[2023-07-23 08:21] LABS: Hematocrit (blood only) 29.9 % (37.0-47.0); Hemoglobin 9.8 g/dl (12.0-16.0); Mean Corpuscular Hemoglobin 29.5 pg (25.0-34.0); Mean Corpuscular Hgb Conc 32.8 g/dL (32.0-36.0); Mean Corpuscular Volume 90.1 fL (80.0-100.0); Mean Platelet Volume 11.3 fL (9.4-12.4); Platelet Count 81 K/uL (130-400); RDW Coefficient of Variation 12.8 % (11.5-14.5); RDW Standard Deviation 42.2 fL (36.4-46.3); Red Blood Count 3.32 M/uL (4.20-5.40)
[2023-07-23] MEDS: POTASSIUM CHLORIDE CRTAB 20 MEQ TABCR PO STA (11:15)
[2023-07-23] MEDS: SODIUM CHLORIDE 0.9% 1,000 ML IV SCH (11:16)
--- NOTE | 2023-07-23 11:24 | Hospitalist Progress Note ---
Date of Service July 23, 2023 Assessment & Plan (1) Sepsis: (2) Abdominal pain: (3) Rigors: (4) Hypomagnesemia: Plan Pt is a 42yoF with no significant PMHx admitted with severe sepsis in the setting of endomyometritis. Severe sepsis Pt hypotensive, febrile with leukopenia on admission Recent uterine ablation procedure at [facility] Lactate wnl x2 Procalcitonin elevated at 1.15 UA not highly suggestive of infection Chest XR with no acute infection CT abd pelvis noting thickened endometrium in setting of recent uterine ablation Head CT noting chronic sinusitis and rhinitis Blood Cx x2 sets growing gram positive cocci in chains Continue Cefepime (consider switching to rocephin for better strep coverage), Vancomycin and Clindamycin IVF for hypotension Continue to monitor symptoms Bacteremia Blood Cx 4 bottles growing gram positive cocci in chains Repeat Blood Cx x2 sets pending Continue Cefepime (consider switching to rocephin for better strep coverage), Vancomycin and Clindamycin ID consulted, appreciate recs Endomyometritis Recent uterine ablation procedure at [facility] CT abd pelvis noting thickened endometrium in setting of recent uterine ablation Pt currently septic Pain control, IV abx BAIT MAKER consulted, appreciate recs Anemia, acute blood loss Hgb dropped from 12 to 9 Per pt having vaginal bleeding AM anemia workup Monitor H/H, transfuse as needed Hypokalemia Replete as needed Pulmonary Vascular Congestion Noted on chest XRAY Pt notes history of MVP Has had many echos consider repeat DVT prophylaxis: Lovenox SQ Diet: Regular Dispo: Home once medically stable Admission and Anticipated Discharge Date Admission Date: July 22, 2023 Subjective Pt was seen with partner at bedside. notes chills and rigors had improved. Noted a gush of vaginal bleeding while in the bathroom. Review of Systems Review of Systems: All systems reviewed & are unremarkable except as noted in Subjective Physical Exam Physical Exam: General: Alert, oriented. No acute distress Skin: No noted rashes or bruises Psych: Appropriate mood and affect Neuro: No gross deficits HEENT: NC/AT Chest: Nontender to palpation. CV: RRR Resp: Breath sounds clear bilaterally, no increased effort of breathing. Abdomen: Soft, diffusely very tender Extremities: No edema in lower extremities bilaterally. Results & Data Results & Data Vital Signs (Past 12 Hours) Vital Signs Temp Pulse Resp BP Pulse Ox O2 Del Method 07/23/23 11:13 36.5 C 63 18 95/60 L 97 Room Air 07/23/23 07:48 36.4 C L 77 18 86/50 L 98 Room Air 07/23/23 03:00 36.7 C 71 20 94/59 L 92 Room Air 07/23/23 01:09 75 18 86/50 L Diagnostic Findings Chest X-Ray 07/22/23 11:45 XR chest 1V portable CLINICAL HISTORY: Sepsis TECHNIQUE: Single frontal radiograph of the chest was obtained. Comparison: None available at the time of this dictation. FINDINGS: No lines and tubes are seen. The cardiomediastinal silhouette is normal. Prominence and cephalization of the vasculature is seen. No evidence of pleural effusion or pneumothorax. IMPRESSION: No acute abnormalities and in particular no radiographic evidence of pneumonia. Mild pulmonary vascular congestion. ACT 112: Negative or not required by law. Electronically signed by: Bart Ashley M.D. 07/22/2023 2:01 PM Abdomen/Pelvis CT 07/22/23 12:05 CT abd pelvis IV con only CLINICAL HISTORY: fever, severe abd pain, s/p uterine ablation tuesd TECHNIQUE: Helical axial images of the abdomen and pelvis were obtained and displayed. Automated dose lowering techniques and/or adjustment according to patient size were utilized for this exam. This exam was performed with intravenous contrast. CT DOSE: 741.29 mGy.cm COMPARISON: None available at the time of this dictation. FINDINGS: Lower chest: Bilateral breast implants are seen. Minimal atelectasis is seen. Liver: Unremarkable. No focal lesions are seen. Gallbladder and biliary tree: No calcified gallstones. Normal caliber wall. No intra- or extrahepatic biliary ductal dilation. Pancreas: Unremarkable, no focal lesions. Spleen: Unremarkable. Adrenals: Unremarkable. Kidneys and ureters: Unremarkable. Bladder: Unremarkable. Reproductive organs: Thickening of the endometrium is noted measuring up to 24 mm. Rim-enhancing lesion is seen in the right adnexa. Bowel: The appendix is normal. Lymph nodes Retroperitoneal: Unremarkable. Pelvic: Unremarkable. Mesenteric: Unremarkable. Peritoneum: Mild free fluid is seen. Vessels: Unremarkable. Abdominal wall: Unremarkable. Bones: Unremarkable. IMPRESSION: Thickened endometrium is likely secondary to recent uterine ablation. Right adnexal lesion likely represents an involuting ovarian cyst. No acute abnormalities are seen. ACT 112: Negative or not required by law. Electronically signed by: Bart Ashley M.D. 07/22/2023 1:[address] 07/22/23 23:16 Exam(s): CT HEAD Without Contrast EXAM: CT Head Without Intravenous Contrast CLINICAL HISTORY: Reason for exam: hong. TECHNIQUE: Axial computed tomography images of the head/brain without intravenous contrast. CTDI is 38.64 mGy and DLP is 547.75 mGy-cm. Automated exposure control was utilized for the study. A dose lowering technique was utilized adhering to the principles of ALARA. COMPARISON: No relevant prior studies available. FINDINGS: Brain: Unremarkable. No hemorrhage. No significant white matter disease. No edema. Ventricles: Unremarkable. No ventriculomegaly. Bones/joints: Unremarkable. No acute fracture. Soft tissues: Unremarkable. Sinuses: Chronic right ethmoid sinusitis and rhinitis. No acute sinusitis. Mastoid air cells: Unremarkable as visualized. No mastoid effusion. IMPRESSION: No evidence of acute intracranial pathology. Electronically signed by: Melissa Martinez MD 07/23/23 01:53 AM
[2023-07-23] MEDS: traMADol HCL 50 MG TABLET PO PRN (15:45)
[2023-07-23] MEDS: HYDROmorphone INJ 0.5 MG/0.5 ML SYR IV PRN (16:31)
[2023-07-23] MEDS: ACETAMINOPHEN 1,000 MG/100 ML VIAL IV PRN (20:01)
[2023-07-24] MEDS: VANCOMYCIN LEVEL ONE (05:35)
[2023-07-24 05:47] LABS: Hematocrit (blood only) 29.1 % (37.0-47.0); Hemoglobin 9.9 g/dl (12.0-16.0); Mean Corpuscular Hemoglobin 29.9 pg (25.0-34.0); Mean Corpuscular Volume 87.9 fL (80.0-100.0); Mean Platelet Volume 11.5 fL (9.4-12.4); Platelet Count 94 K/uL (130-400); RDW Coefficient of Variation 12.9 % (11.5-14.5); RDW Standard Deviation 41.3 fL (36.4-46.3); Red Blood Count 3.31 M/uL (4.20-5.40); White Blood Count 10.14 K/ul (4.8-10.8)
[2023-07-24 05:55] LABS: Anion Gap 7 (3-11); BUN Creatinine Ratio 15.4 (10-20); Blood Urea Nitrogen 8 mg/dl (6-23); Calcium 8.1 mg/dl (8.6-10.3); Carbon Dioxide 20 mmol/L (21-32); Chloride 108 mmol/L (98-107); Creatinine Clr Calc Pharmacy 133.3 ml/min; Est GFR (African American) 138.5 ml/min; Est GFR (Non-African American) 119.5 ml/min; Glucose 99 mg/dl (70-99(Fasting)); Potassium 3.6 mmol/L (3.5-5.1); Sodium 135 mmol/L (136-145)
[2023-07-24 06:14] LABS: Ferritin 108.5 ng/ml (8-388)
[2023-07-24 06:17] LABS: Alanine Aminotransferase 39 U/L (7-52); Albumin Globulin Ratio 1.2 (0.9-2); Alkaline Phosphatase 82 U/L (34-104); Aspartate Aminotransferase 35 U/L (13-39); Bilirubin,Total 0.4 mg/dl (0.2-1.0); Globulin 2.6 gm/dl (2.5-4.0); Iron < 10 mcg/dl (35-150); Magnesium 1.7 mg/dl (1.7-2.4); Total Protein 5.6 gm/dl (6.0-8.3); Unsaturated Iron Binding Cap 217 mcg/dl (155-355)
[2023-07-24] MEDS: DOCUSATE SODIUM/SENNA 50/8.6MG TAB PO SCH (06:35)
[2023-07-24] MEDS: FUROSEMIDE INJ 20 MG/2 ML VIAL IV ONE (06:35)
[2023-07-24 06:42] LABS: Folate (Folic Acid),Ser orPlas > 22.30 ng/ml (>5.38); Vitamin B12 290 pg/ml (180-914)
[2023-07-24] MEDS: LACTULOSE SYRUP 30 GM/45 ML UDP PO STA (07:27)
--- NOTE | 2023-07-24 07:49 | XRay Report ---
XR chest 1V portable HISTORY: 42 years-old Female low o2 acute hypoxia COMPARISON: 07/22/2023 TECHNIQUE: AP view of the chest FINDINGS: Cardiac silhouette is enlarged. No pneumothorax. Probable trace pleural effusions. Mild right hemidia phragmatic elevation. Bilateral mixed interstitial and alveolar opacities with airspace consolidation most pronounced in the medial right lung base and right perihilar distribution. Bilateral breast imp lants. IMPRESSION: Interval development of bilateral mixed interstitial and alveolar opacities with airspace consolidation most pronounced in the medial right lung base. Findings are suggestive of multifocal p neumonia versus aspiration. ACT 112: Negative or not required by law. The above report was generated using voice recognition software. It may contain grammatical, syntax o r spelling errors. Electronically signed by: Mohan Mckeon M.D. 07/24/2023 7:48 AM
[2023-07-24] MEDS: ALBUT/IPRATROP 3MG/0.5MG NEB 3 ML VIAL NEB STA (07:58)
--- NOTE | 2023-07-24 09:34 | Pharmacy Report ---
Pharmacy PK ABX Note - Date of Service July 24, 2023 - Assessment and Plan Assessment 07/23: Reviewed vancomycin level, predicting a therapeutic AUC/LAKESHA with low probability, will increase dose slightly for higher probability of acheiving goal AUC/LAKESHA. Blood cultures from 07/21 growing Group B Beta strep (07/18) S ampicillin/PCN/CTX/Vancomycin, repeat cultures pending (no growth x24 hours). Patient has noted allergies to PCN/amoxicillin (Hives), MRSA nasal swab pending, ID consulted. 07/21: 42 year old F receiving clindamycin/cefepime/vancomycin for treatment of sepsis/abdominal pain status post uterine ablation (07/16). Pertinent microbiologic data includes: MRSA Nasal Swab pending, blood cultures pending. Day # 3 of antimicrobial therapy. Plan Vancomycin * Maintenance dose: 1000 mg IV every 8 hours * Based on trough of 9.8mcg/mL will increase dose slightly to vancomycin 1250mg Q8H for greater probability of achieving goal AUC/LAKESHA * Regimen is predicted to achieve target AUC/LAKESHA of 400-600 mg/L.hr * Trough level ordered for: 07/25/23 @1130 Pharmacy will continue to follow and will adjust dose/frequency as necessary. Thank you. Pharmacy has transitioned to AUC monitoring for vancomycin. AUC/LAKESHA is the preferred PK/PD target and is associated with decreased risk of nephrotoxicity compared to traditional trough targets.
--- NOTE | 2023-07-24 09:54 | Hospitalist Progress Note ---
Date of Service July 24, 2023 Assessment & Plan (1) Sepsis: (2) Abdominal pain: (3) Rigors: (4) Hypomagnesemia: Plan Pt is a 42yoF with no significant PMHx admitted with severe sepsis in the setting of endomyometritis. Severe sepsis Pt hypotensive, febrile with leukopenia on admission Recent uterine ablation procedure at [facility] Lactate wnl x2 Procalcitonin elevated at 1.15 UA not highly suggestive of infection Chest XR on admission with no acute infection, repeated on 07/[address] abd pelvis noting thickened endometrium in setting of recent uterine ablation Head CT noting chronic sinusitis and rhinitis Blood Cx x2 sets growing gram positive cocci in chains Was on Cefepime, Vancomycin and Clindamycin ID was consulted -recommended switch to Rocephin and Flagyl on 07/23 IVF for hypotension Continue to monitor symptoms Bacteremia Blood Cx 4 bottles growing gram positive cocci in chains Repeat Blood Cx x2 sets pending Was on Cefepime, Vancomycin and Clindamycin ID was consulted -recommended switch to Rocephin and Flagyl on 07/23 Echo ordered and pending to r/o endocarditis Follow cultures Endomyometritis Recent uterine ablation procedure at [facility] CT abd pelvis noting thickened endometrium in setting of recent uterine ablation Pt currently septic Pain control, IV abx SUPERVISOR RECEIVING AND PROCESSING consulted, appreciate recs Pneumonia Increased oxygen need Repeat chest xray noting pneumonia, possible aspiration Per pt no issues with aspiration Continue rocephin and flagyl as above Anemia, acute blood loss Iron Deficiency anemia Hgb dropped from 12 to 9 Per pt having vaginal bleeding AM anemia workup appears iron deficient, consider IV venofer replacement while hospitalized Hypokalemia Replete as needed Pulmonary Vascular Congestion Noted on chest XRAY Pt notes history of MVP Has had many echos echo repeat in setting of Bacteremia DVT prophylaxis: Lovenox SQ Diet: Regular Dispo: Home once medically stable Admission and Anticipated Discharge Date Admission Date: July 22, 2023 Subjective Pt seen with partner at bedside. Discussed course with sister on the phone who was an CURB ATTENDANT. Pt with new increased requirement. Pneumonia noted on chest XRAY. Review of Systems Review of Systems: All systems reviewed & are unremarkable except as noted in Subjective Physical Exam Physical Exam: General: Alert, oriented. No acute distress Skin: No noted rashes or bruises Psych: Appropriate mood and affect Neuro: neck tender to palpation HEENT: NC/AT Chest: Nontender to palpation. CV: RRR Resp: Breath sounds clear bilaterally, no increased effort of breathing. Abdomen: Soft, diffusely very tender Extremities: No edema in lower extremities bilaterally. Results & Data Results & Data Vital Signs (Past 12 Hours) Vital Signs Temp Pulse Pulse Resp BP Pulse Ox O2 Del Method 07/24/23 08:00 59 L 07/24/23 08:00 Nasal Cannula 07/24/23 07:59 49 L 18 97 Nasal Cannula 07/24/23 07:52 37.3 C 53 L 16 116/75 97 Nasal Cannula 07/24/23 05:40 53 L 18 89 L Nasal Cannula 07/24/23 02:30 37.1 C 64 18 120/72 90 Nasal Cannula 07/23/23 22:44 37.0 C 56 L 16 112/61 92 Nasal Cannula 07/23/23 22:00 57 L O2 Flow Rate 07/24/23 08:00 07/24/23 08:00 3 07/24/23 07:59 3 07/24/23 07:52 3 07/24/23 05:40 2 07/24/23 02:30 2 07/23/23 22:44 1 07/23/23 22:00
[2023-07-24] MEDS ORDERED: CYCLOBENZAPRINE HCL 5 MG TAB PO PRN (11:31)
[2023-07-24] MEDS: VANCOMYCIN HCL 1,250 MG in SODIUM CHLORIDE 0.9% 250 ML IV SCH (11:35)
--- NOTE | 2023-07-24 15:11 | Infectious Disease Consult ---
Date of Service July 24, 2023 Telehealth Information I performed this visit using a real-time telehealth connection between my location and the patients location ([facility]). After connecting through interactive tele-video, patient was identified by name and date of and/or wristband check.Patient (or authorized healthcare parts representative) was informed that this was a telemedicine visit and it was being conducted confidentially over secure lines. My office door was closed and no one else was present in the room with me.Patient (or authorized healthcare parts representative) provided consent to proceed with the visit, expressed an understanding of privacy and security of the telemedicine visit, and gave permission to have a hospital parts representative in the room in order to assist with the visit and to conduct portions of the visit, as needed. I informed the patient (or authorized healthcare parts representative) that I reviewed their record and presented the opportunity for them to ask any questions regarding the visit today. The patient agreed to participate. Assessment & Plan (1) Endomyometritis: (2) Streptococcal bacteremia: (3) Sepsis: Plan Patient with recent uterine ablation presenting with worsening abdominal pain found to have endomyometritis and strep bacteremia. She is currently receiving cefepime, clindamycin, and vancomycin. -Given heavy burden bacteremia recommend TTE to evaluate for IE -Follow cultures to clear x48 hours -Given strep in her blood she will need at least 2 weeks of abx -Stop cefepime, clindamycin, and vancomycin -Recommend broad gram negative and anaerobic coverage as well to cover for /intra-abdominal pathogens -Start flagyl 500 TID and ceftriaxone 2g daily History of Present Illness History of Present Illness Patient with a recent hx of uterine ablation on 07/16 who is presenting with abdominal pain and rigors. Initially following the procedure she felt well but began to develop intense abdominal pain that extended from the mid abdomen to the suprapubic region. She had associated malaise and weakness. She was unable to ambulate given lightheadedness. She initially presented to [facility] ED where she got an abdominal CT and transvaginal US. She was given oxycodone for pain and discharged. She returned to [facility] ED given increasing pain. US at [place] showed slightly complex fluid in uterine cavity may be associated with recent procedure. Blood cultures are positive for GBS in 4/4 bottles. Patient is currently receiving cefepime, vanco, and clinda. 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 Fibromyalgia Family History (Updated 07/22/23 @ 15:45 by JIMENEZ Matos) Other Dyslipidemia Osteoarthritis Social History (Updated 07/22/23 @ 15:45 by JIMENEZ Matos) Smoking Status: Never smoker Second Hand Exposure: No; Do You Dip or Chew Tobacco: No; Hx Alcohol Use: No Hx Substance Use: No Preferred Language: Albanian Communication Ability: Effective Passenger Interline Clerk Required: No Beliefs That Will Affect Care: None Current Living Situation: Family Other Information That Helps Us Care for You: No Feels Safe at Home: Yes Safety Concerns: Feels Safe At This Time Assistive Devices: None Results & Data Vital Signs (Past 12 Hours) Vital Signs Temp Pulse Pulse Resp BP Pulse Ox O2 Del Method 07/24/23 11:13 37.0 C 61 18 118/82 91 Room Air 07/24/23 08:00 59 L 07/24/23 08:00 Nasal Cannula 07/24/23 07:59 49 L 18 97 Nasal Cannula 07/24/23 07:52 37.3 C 53 L 16 116/75 97 Nasal Cannula 07/24/23 05:40 53 L 18 89 L Nasal Cannula O2 Flow Rate 07/24/23 11:13 07/24/23 08:00 07/24/23 08:00 3 07/24/23 07:59 3 07/24/23 07:52 3 07/24/23 05:40 2
[2023-07-24] MEDS ORDERED: CYCLOBENZAPRINE HCL 5 MG TAB PO SCH (18:45)
[2023-07-24] MEDS: metroNIDAZOLE 500 MG/100 ML BAG IV SCH (21:20)
[2023-07-24] MEDS: cefTRIAXone SODIUM 2,000 MG in DEXTROSE 5 % MINI-B 50 ML IV SCH (21:20)
[2023-07-24] MEDS: CYCLOBENZAPRINE HCL 5 MG TAB PO ONE (21:20)
[2023-07-25 07:25] LABS: Hematocrit (blood only) 28.5 % (37.0-47.0); Hemoglobin 9.7 g/dl (12.0-16.0); Mean Corpuscular Hemoglobin 29.8 pg (25.0-34.0); Mean Corpuscular Volume 87.4 fL (80.0-100.0); Mean Platelet Volume 11.7 fL (9.4-12.4); Platelet Count 108 K/uL (130-400); RDW Coefficient of Variation 12.9 % (11.5-14.5); RDW Standard Deviation 41.3 fL (36.4-46.3); Red Blood Count 3.26 M/uL (4.20-5.40)
[2023-07-25 08:00] LABS: Alanine Aminotransferase 149 U/L (7-52); Albumin Globulin Ratio 1.1 (0.9-2); Albumin Level 3.2 gm/dl (3.4-5.0); Alkaline Phosphatase 178 U/L (34-104); Anion Gap 6 (3-11); Aspartate Aminotransferase 198 U/L (13-39); BUN Creatinine Ratio 10.3 (10-20); Bilirubin,Total 1.6 mg/dl (0.2-1.0); Blood Urea Nitrogen 4 mg/dl (6-23); Calcium 8.4 mg/dl (8.6-10.3); Carbon Dioxide 23 mmol/L (21-32); Chloride 107 mmol/L (98-107); Est GFR (African American) > 150.0 ml/min; Est GFR (Non-African American) 131.4 ml/min; Globulin 2.8 gm/dl (2.5-4.0); Glucose 95 mg/dl (70-99(Fasting)); Magnesium 1.8 mg/dl (1.7-2.4); Phosphorus 2.9 mg/dl (2.5-4.9); Potassium 3.5 mmol/L (3.5-5.1); Sodium 136 mmol/L (136-145)
[2023-07-25] MEDS ORDERED: VANCOMYCIN LEVEL ONE (11:00)
--- NOTE | 2023-07-25 13:39 | Hospitalist Progress Note ---
Date of Service July 25, 2023 Assessment & Plan (1) Sepsis: (2) Abdominal pain: (3) Rigors: (4) Hypomagnesemia: Plan 42yoF with no significant PMHx admitted with severe sepsis in the setting of endomyometritis. Severe sepsis Bacteremia Endomyometritis Pt hypotensive, febrile with leukopenia on admission Recent uterine ablation procedure at [facility] Lactate wnl x2 Procalcitonin elevated at 1.15 Chest XR on admission with no acute infection, Repeat CXR on 07/[address] abd pelvis noting thickened endometrium in setting of recent uterine ablation Head CT noted chronic sinusitis and rhinitis Blood Cx 07/22/23 x2 sets growing Grp B strep Repeat BCx from 07/23/23 remain negative so far Was on Cefepime, Vancomycin and Clindamycin ID was consulted and recommended switch to Rocephin and Flagyl on 07/23 TTE today did not show vegetation WAD BLANKING PRESS ADJUSTER recs appreciated Pneumonia Increased oxygen need Repeat chest xray oon 07/24/23 noted pneumonia, possible aspiration Continue rocephin and flagyl as above Anemia, acute blood loss Iron Deficiency anemia Hgb dropped from 12 to 9 Per pt having vaginal bleeding Stable in 9s Hypokalemia Replete as needed Pulmonary Vascular Congestion Noted on chest XRAY Pt notes history of MVP DVT prophylaxis: Lovenox SQ Diet: Regular Dispo: Home once medically stable I spent a total of 50 minutes coordinating, documenting and providing care for this patient excluding time spent in performance of separately billed services Called sister who is a RUBBER FLAP CUTTER and updated her per patient's request Admission and Anticipated Discharge Date Admission Date: July 22, 2023 Subjective Patient seen and examined. Continues to report headache, posterior part of the head, 7/10 associated with neck pain. No dizziness. Reports that nausea and vomiting in ER today. Reports dry cough. Denies chest pain or shortness of breath Reports mild abdominal pain, not referred. Denies diarrhea, melena or hematochezia Denies dysuria, frequency Had fever of 38 last night Physical Exam Constitutional: + well hydrated; no acute distress Eyes: PERRL, conjunctivae normal, anicteric sclerae ENMT: external ear and nose normal, oropharynx normal +neck tenderness Respiratory: On nasal cannula, not in respiratory distress, diminished breath sounds lung bases posteriorly Cardiovascular: Rate/Rhythm: regular rhythm S1-S2. Bradycardic Gastrointestinal (Abdomen): Soft, mild tenderness generalized, Normal bowel sounds Musculoskeletal: no cyanosis or clubbing, extremities motor strength 5/5 Neurologic: PERRL, EOMI, accommodation nl, no face palsy, no dysarthria Psychiatric: A+Ox3, euthymic affect Results & Data Results & Data Vital Signs (Past 12 Hours) Vital Signs Temp Pulse Pulse Resp BP Pulse Ox O2 Del Method 07/25/23 10:43 36.7 C 52 L 18 111/74 98 Nasal Cannula 07/25/23 08:00 53 L 07/25/23 08:00 Room Air 07/25/23 07:43 37.1 C 59 L 18 111/76 97 Nasal Cannula 07/25/23 03:58 37.1 C 63 16 110/72 97 Nasal Cannula O2 Flow Rate 07/25/23 10:43 3 07/25/23 08:00 07/25/23 08:00 07/25/23 07:43 3 07/25/23 03:58 2.5 Laboratory Results Abnormal lab results 07/25/23 07/25/23 Range/Units 06:44 12:19 RBC 3.26 L (4.20-5.40) M/uL Hgb 9.7 L (12.0-16.0) g/dl Hct 28.5 L (37.0-47.0) % Plt Count 108 L (130-400) K/uL BUN 4 L (6-23) mg/dl Creatinine 0.39 L (0.6-1.2) mg/dl Calcium 8.4 L (8.6-10.3) mg/dl Total Bilirubin 1.6 H D (0.2-1.0) mg/dl AST 198 H (13-39) U/L ALT 149 H (7-52) U/L Alkaline Phosphatase 178 H D (34-104) U/L Albumin 3.2 L (3.4-5.0) gm/dl Random Vancomycin 3.0 L (10-20) mcg/ml
[2023-07-25] MEDS: ONDANSETRON INJ 2 MG/ML 2 ML VIAL IV STA (19:34)
[2023-07-26 08:39] LABS: Hematocrit (blood only) 28.7 % (37.0-47.0); Hemoglobin 9.8 g/dl (12.0-16.0); Mean Corpuscular Hemoglobin 29.5 pg (25.0-34.0); Mean Corpuscular Hgb Conc 34.1 g/dL (32.0-36.0); Mean Corpuscular Volume 86.4 fL (80.0-100.0); Mean Platelet Volume 11.3 fL (9.4-12.4); Platelet Count 154 K/uL (130-400); RDW Coefficient of Variation 13.1 % (11.5-14.5); RDW Standard Deviation 41.4 fL (36.4-46.3); Red Blood Count 3.32 M/uL (4.20-5.40); White Blood Count 4.72 K/ul (4.8-10.8)
[2023-07-26 09:09] LABS: Albumin Level 3.1 gm/dl (3.4-5.0); BUN Creatinine Ratio 11.1 (10-20); Calcium 8.5 mg/dl (8.6-10.3); Creatinine Clr Calc Pharmacy 157.4 ml/min; Est GFR (African American) 145.3 ml/min; Est GFR (Non-African American) 125.3 ml/min; Magnesium 1.9 mg/dl (1.7-2.4); Phosphorus 3.1 mg/dl (2.5-4.9); Potassium 3.5 mmol/L (3.5-5.1); Total Protein 6.1 gm/dl (6.0-8.3)
--- NOTE | 2023-07-26 11:50 | Hospitalist Progress Note ---
Date of Service July 26, 2023 Assessment & Plan (1) Sepsis: (2) Abdominal pain: (3) Rigors: (4) Hypomagnesemia: Plan 42yoF with no significant PMHx admitted with severe sepsis in the setting of endomyometritis. Severe sepsis Bacteremia Endomyometritis Pt was hypotensive, febrile with leukopenia on admission Recent uterine ablation procedure at [facility] Lactate wnl x2 Procalcitonin elevated at 1.15 Chest XR on admission with no acute infection, Repeat CXR on 07/[address] abd pelvis noting thickened endometrium in setting of recent uterine ablation Head CT noted chronic sinusitis and rhinitis Blood Cx 07/22/23 x2 sets growing Grp B strep Repeat BCx from 07/23/23 remain negative so far Was on Cefepime, Vancomycin and Clindamycin ID was consulted and recommended switch to Rocephin and Flagyl on 07/23 TTE did not show vegetation HAT MENDER recs appreciated Last fever was on 07/24/23 at 7.47PM Change antiemetic to zofran PRN Procal is elevated today at 6.35 Repeat blood cultures Acute respiratory failure with hypoxia Pneumonia Repeat chest xray on 07/24/23 noted pneumonia, possible aspiration Continue rocephin and flagyl as above CXR today noted some pleural effusion b/l Cumulative fluid balance since admission is +5.7L Will give IV lasix 20mg x1 and monitor Monitor electrolytes Bradycardia Asymptomatic sinus krystle on tele and EKG Cardiology consult Anemia, acute blood loss Iron Deficiency anemia Hgb dropped from 12 to 9 Per pt having vaginal bleeding Stable in 9s Pulmonary Vascular Congestion Noted on chest XRAY Pt notes history of MVP DVT prophylaxis: Lovenox SQ Diet: Regular Dispo: Home once medically stable Encourage activity/IS/Flutter I spent a total of 50 minutes coordinating, documenting and providing care for this patient excluding time spent in performance of separately billed services Admission and Anticipated Discharge Date Admission Date: July 22, 2023 Subjective Patient seen and examined Reports persistent nausea and vomiting overnight. Reports headache is improved today. Reports lower abdominal discomfort which she associated with the vomiting. Denies any chest pain. Reported dry cough. Denies shortness of breath. Noted that she had few seconds of chest tightness overnight during one of the vomiting episodes. Vomiting is nonbloody nonbilious. Passing flatus. Last bowel movement was 2 days ago. Denies dysuria, frequency or urgency Denies palpitation Last fever was on 07/24/23 around 7pm Physical Exam Constitutional: + well hydrated; no acute distress Eyes: PERRL, conjunctivae normal, anicteric sclerae ENMT: external ear and nose normal, oropharynx normal Respiratory: On nasal cannula, not in resp distress, diminished breath sounds base Cardiovascular: Rate/Rhythm: regular rhythm and + bradycardic S1 S2 Gastrointestinal (Abdomen): Inspection/Auscultation: abdomen normal to inspection and normal bowel sounds; abdomen not distended mild suprapubic tenderness Musculoskeletal: no cyanosis or clubbing, extremities motor strength 5/5 Neurologic: PERRL, EOMI, accommodation nl, no face palsy, no dysarthria Psychiatric: A+Ox3, euthymic affect Results & Data Results & Data Vital Signs (Past 12 Hours) Vital Signs Temp Pulse Pulse Resp BP BP Pulse Ox 07/26/23 11:41 37 C 42 L 20 139/78 97 07/26/23 10:21 96 07/26/23 07:58 36.8 C 48 L 19 148/84 H 97 07/26/23 07:26 41 L 07/26/23 04:33 36.6 C 47 L 20 136/86 99 O2 Del Method O2 Flow Rate 07/26/23 11:41 Nasal Cannula 3 07/26/23 10:21 Nasal Cannula 3 07/26/23 07:58 Nasal Cannula 3 07/26/23 07:26 07/26/23 04:33 Nasal Cannula 2.5 Laboratory Results Abnormal lab results 07/25/23 07/26/23 Range/Units 12:19 08:04 WBC 4.72 L (4.8-10.8) K/ul RBC 3.32 L (4.20-5.40) M/uL Hgb 9.8 L (12.0-16.0) g/dl Hct 28.7 L (37.0-47.0) % BUN 5 L (6-23) mg/dl Creatinine 0.45 L (0.6-1.2) mg/dl Glucose 100 H (70-99(Fasting)) mg/dl Calcium 8.5 L (8.6-10.3) mg/dl AST 116 H (13-39) U/L ALT 141 H (7-52) U/L Alkaline Phosphatase 200 H (34-104) U/L Albumin 3.1 L (3.4-5.0) gm/dl Procalcitonin 6.35 H (0-0.5) ng/ml Random Vancomycin 3.0 L (10-20) mcg/ml
--- NOTE | 2023-07-26 12:12 | Cardiology Consultation ---
Date of Consultation July 26, 2023 Assessment & Plan (1) Streptococcal bacteremia: (2) Endomyometritis: (3) Abdominal pain: (4) Mitral valve prolapse: (5) Mitral regurgitation: Plan Bradycardia. Asymptomatic. Suspect vagally mediated bradycardia. Avoid all AV florentin blockers. Discontinue Phenergan and Dilaudid if possible. Avoid hypovolemia. Maintain telemetry. Further recommendations pending evaluation by Dr. Gonzalez. Supervising Physician Co-Signing Physician Notes I have reviewed the advance practitioner's documentation, and I agree with, and take responsibility for the plan of care. 42-year-old female admitted 07/22/2023 secondary to abdominal discomfort. Diagnosed with bacteremia in the setting of endomyometritis status post IUD removal. Cardiology consultation requested due to bradycardia. Patient reports severe nausea and vomiting yesterday and throughout the night 07/25/2023. Symptoms much improved today. Able to tolerate her a.m. meal. Telemetry reveals sinus bradycardia currently in the 40s and 50s. Denies lightheadedness, dizziness, syncope, or near syncope. PE: VSS. Gen: NAD, AAO x3. Heart: Regular rhythm, normal S1-S2. No murmur. Lungs: Clear bilateral, no rales, rhonchi, wheezes extremities: No edema. A/P: 42-year-old female admitted with strep bacteremia in the setting of endomyometritis following IUD removal. Blood cultures clear with IV antibiotic therapy. Resting 2D transthoracic echocardiogram without evidence of vegetation. Bradycardia vagally mediated in the setting of significant abdominal discomfort, nausea, and vomiting over the past 24 hours. Continue telemetry monitoring. I spent a total of 30 minutes on the date of service in preparation, delivery, and documentation of the care provided to this patient, excluding any time spent in the performance of separately billed services. History of Present Illness Reason for Consultation: Sinus bradycardia Requesting Physician: Dr. Huang Attending Physician: Dr. Huang History of Present Illness Ms. Alexandria Oates is a 42-year-old female who was admitted to [facility] on July 22, 2023 with worsening abdominal pain. Patient found to have bacteremia, severe sepsis in the setting of endomyometritis following removal of an IUD, dilatation of cervix and curettage with hysteroscopy, myosure resection and Novasure ablation at [facility] on July 18, 2023. Initial blood cultures on 07/22/2023 with strep bacteremia. Patient evaluated by Infectious Disease with resting echocardiography requested to evaluate for endocarditis. She is being treated with broad gram-negative and anaerobic coverage with Flagyl and ceftriaxone and notes significant improvement in presenting symptoms though continues to have nausea and intermittent vomiting. A second set of blood cultures obtained on July 23, 2023 is without growth after 48 hours. Resting echocardiography on July 25, 2023 showed no evidence of mass or vegetation, revealing normal LV systolic function, EF 55 to 60%. The mitral valve leaflets appeared thickened but open well. Mild mitral and tricuspid regurgitation observed. Doppler findings were not suggestive of pulmonary hypertension. Cardiology consultation requested on July 26, 2023 due to bradycardia. Patient received 1 dose of oxycodone for pain prior to arrival and has received IV Dilaudid as well as Phenergan during this hospitalization for ongoing nausea and intermittent emesis. Review of the patient's continuous digital solution architect reveals sinus/sinus tachycardia initially on admission. More recently, patient observed to have sinus bradycardia into the 30s while sleeping, currently in the 50s. No high degree heart block. No atrial fibrillation. 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 She was diagnosed with COVID in March and notes having long COVID symptoms as well as fibromyalgia anomic dysfunction, and mitral valve prolapse. Resting echocardi ography in March 2023 showed borderline posterior mitral valve prolapse with trivial mitral regurgitation, preserved LV systolic function with an ejection fraction of 60 to 64%. ZIO monitoring in May 2023 revealed sinus is a predominant rhythm with an average heart rate of 78 bpm. Rare atrial and ventricular ectopy observed. 100 patient triggered events and 50 diary entries were submitted, correlating with sinus rhythm ranging from 55 to 115 bpm. 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 Fibromyalgia Family History Other Dyslipidemia Osteoarthritis Social History Smoking Status: Never smoker Second Hand Exposure: No; Do You Dip or Chew Tobacco: No; Hx Alcohol Use: No Hx Substance Use: No Preferred Language: [place] Communication Ability: Effective Blocker And Cutter Contact Lens Required: No Beliefs That Will Affect Care: None Current Living Situation: Family Other Information That Helps Us Care for You: No Feels Safe at Home: Yes Safety Concerns: Feels Safe At This Time Assistive Devices: None Review of Systems Review of Systems: Complete Review of Systems is as stated above, negative, or noncontributory. Physical Exam Physical Exam: General: A&Ox3. NAD. HENT: Normocephalic. Atraumatic. Eyes: PER. Conjunctiva pink, sclera clear. Neck: No carotid bruits. No JVD. Heart: Regular at 50 bpm. No murmur. No rub. Lungs: Diminished, perhaps due to inspiratory effort. Clear to auscultation. Abdomen: +BS. Extremities: No clubbing, cyanosis, or edema. Limited neurological examination is without focal deficits. Pulses: Posterior tibial=2/4. Results & Data Vital Signs (Past 12 Hours) Vital Signs Temp Pulse Pulse Resp BP BP Pulse Ox 07/26/23 11:41 37 C 42 L 20 139/78 97 07/26/23 10:21 96 07/26/23 07:58 36.8 C 48 L 19 148/84 H 97 07/26/23 07:26 41 L 07/26/23 04:33 36.6 C 47 L 20 136/86 99 O2 Del Method O2 Flow Rate 07/26/23 11:41 Nasal Cannula 3 07/26/23 10:21 Nasal Cannula 3 07/26/23 07:58 Nasal Cannula 3 07/26/23 07:26 07/26/23 04:33 Nasal Cannula 2.5 Laboratory Results Cardiac Enzymes 07/26/23 Range/Units 08:04 AST 116 H (13-39) U/L CBC 07/26/23 Range/Units 08:04 WBC 4.72 L (4.8-10.8) K/ul RBC 3.32 L (4.20-5.40) M/uL Hgb 9.8 L (12.0-16.0) g/dl Hct 28.7 L (37.0-47.0) % Plt Count 154 (130-400) K/uL Comprehensive Metabolic Panel 07/26/23 Range/Units 08:04 Sodium 138 (136-145) mmol/L Potassium 3.5 (3.5-5.1) mmol/L Chloride 106 (98-107) mmol/L Carbon Dioxide 26 (21-32) mmol/L BUN 5 L (6-23) mg/dl Creatinine 0.45 L (0.6-1.2) mg/dl Glucose 100 H (70-99(Fasting)) mg/dl Calcium 8.5 L (8.6-10.3) mg/dl AST 116 H (13-39) U/L ALT 141 H (7-52) U/L Alkaline Phosphatase 200 H (34-104) U/L Total Protein 6.1 (6.0-8.3) gm/dl Albumin 3.1 L (3.4-5.0) gm/dl Intake and Output 07/25/23 07/26/23 07/26/23 22:59 06:59 14:59 Intake Total 880.25 / 3370.50 450 / 3370.50 150.25 / 150.25 Output Total 1595 / 3120 700 / 3120 Balance -714.75 / 250.50 -250 / 250.50 150.25 / 150.25 Intake: IV 300.25 / 650.50 200 / 650.50 150.25 / 150.25 Acetaminophen 1,000 mg In 100 100 / 200 100 / 200 ml @ 400 mls/hr IV Q8H PRN Rx#: [id number] Promethazine HCl 6.25 mg In 50.25 / 100.50 50.25 / 50.25 Sodium Chloride 0.9% 50 ml @ 201 mls/hr IV Q6H PRN Rx#: [id number] cefTRIAXone SODIUM 2,000 mg In 50 / 50 Dextrose 5 % Mini-B 50 ml @ 100 mls/hr IV Q24H [facility] Rx#: [id number] metroNIDAZOLE 500 mg In 100 ml 100 / 300 100 / 300 100 / 100 @ 100 mls/hr IV Q8H [facility] Rx#: [id number] Oral 580 / 2720 250 / 2720 Output: Urine 1595 / 3120 700 / 3120 Other: # Emeses 1 2 Weight 71.4 kg Weight Measurement Method Standing Scale Diagnostic Findings Initial EKG revealed normal sinus rhythm at 98 bpm with possible left atrial enlargement. QTc 390 ms. EKG obtained this morning revealed marked sinus bradycardia with a ventricular rate of 43 bpm. QTc 395 ms.
--- NOTE | 2023-07-26 12:22 | XRay Report ---
XR chest 1V portable HISTORY: Reassess hypoxia COMPARISON: Chest 07/24/2023. FINDINGS: No pneumothorax. There are small bilateral pleural effusions. Perihilar airspace opacities and interstitial thickening has improved. There are patchy bibasilar densities again noted. The heart remains mildly enlarged. No acute fractures. IMPRESSION: 1. Cardiomegaly with interval improvement in the perihilar airspace opacities. This favors resolving pulmonary edema. 2. Small bilateral pleural effusions. 3. Patchy bibasilar densities may represent atelectasis or a pneumonia. ACT 112: Negative or not required by law. Electronically signed by: Tim Pulido M.D. 07/26/2023 12:21 PM
[2023-07-26] MEDS: FUROSEMIDE INJ 20 MG/2 ML VIAL IV ONE (13:34)
[2023-07-26] MEDS: POTASSIUM CHLORIDE CRTAB 20 MEQ TABCR PO STA (13:34)
[2023-07-26] MEDS: ONDANSETRON INJ 2 MG/ML 2 ML VIAL IV PRN (14:12)
[2023-07-26 15:26] LABS: Thyroid Stimulating Hormone 2.571 uIu/ml (0.300-4.500)
[2023-07-26] MEDS: ALBUTEROL 0.083% NEBU SOLN 3 ML VIAL NEB PRN (16:32)
[2023-07-26] MEDS: KETOROLAC TROMETHAMINE 15 MG/ML VIAL IV ONE (21:17)
--- NOTE | 2023-07-26 22:54 | Electrocardiogram Report ---
Test Reason : Blood Pressure : / mmHG Vent. Rate : 043 BPM Atrial Rate : 043 BPM P-R Int : 184 ms QRS Dur : 088 ms QT Int : 468 ms P-R-T Axes : 008 016 013 degrees QTc Int : 395 ms Marked sinus bradycardia Nonspecific T wave abnormality Abnormal ECG When compared with ECG of 22-JUL-2023 11:38, Vent. rate has decreased BY 55 BPM Confirmed by Henry Zepeda ([id number]) on 07/26/2023 10:53:58 PM Referred By: REFERRED SELF Confirmed By:Henry Zepeda
[2023-07-27 06:03] LABS: Hematocrit (blood only) 28.5 % (37.0-47.0); Mean Corpuscular Hemoglobin 29.8 pg (25.0-34.0); Mean Corpuscular Hgb Conc 35.1 g/dL (32.0-36.0); Mean Corpuscular Volume 84.8 fL (80.0-100.0); Mean Platelet Volume 10.7 fL (9.4-12.4); Platelet Count 239 K/uL (130-400); Red Blood Count 3.36 M/uL (4.20-5.40)
[2023-07-27 06:25] LABS: BUN Creatinine Ratio 15.6 (10-20); Bilirubin,Total 0.8 mg/dl (0.2-1.0); Calcium 8.5 mg/dl (8.6-10.3); Creatinine Clr Calc Pharmacy 155.5 ml/min; Est GFR (African American) 145.3 ml/min; Est GFR (Non-African American) 125.3 ml/min; Magnesium 1.8 mg/dl (1.7-2.4); Phosphorus 3.5 mg/dl (2.5-4.9); Potassium 3.4 mmol/L (3.5-5.1)
--- NOTE | 2023-07-27 10:54 | Cardiology Progress Note ---
Date of Service July 27, 2023 Assessment & Plan (1) Streptococcal bacteremia: (2) Endomyometritis: (3) Abdominal pain: (4) Mitral valve prolapse: (5) Mitral regurgitation: Plan 42-year-old female admitted with strep bacteremia in the setting of endomyometritis following MANAGEMENT DEVELOPER procedure. Resting 2D transthoracic echocardiogram without evidence of vegetation. Cardiology consultation requested due to observed bradycardia, appearing to be vagally mediated in the setting of s ignificant abdominal discomfort, nausea, and vomiting. Ongoing nausea and vomiting noted. Heart rates mildly improved. - Avoid hypovolemia. - Supplement potassium. - Continue telemetry. Admission and Anticipated Discharge Date Admission Date: July 22, 2023 Supervising Physician Co-Signing Physician Notes I have reviewed the advance practitioner's documentation, and I agree with, and take responsibility for the plan of care. Subjective Patient seen and examined. Chart, medications, and telemetry reviewed. Sister and partner at bedside. Sister is a pediatric nurse practitioner in [place] Ongoing nausea and vomiting noted. Telemetry: Currently sinus at 60 bpm. Heart rates down to 43 bpm overnight. Occasional atrial ectopy. No pauses. Review of Systems Review of Systems: Complete Review of Systems is as stated above, negative, or noncontributory. Physical Exam Physical Exam: General: A&Ox3. NAD. HENT: Normocephalic. Atraumatic. Eyes: PER. Conjunctiva pink, sclera clear. Neck: No overt JVD. Heart: Regular at 50 bpm. No murmur. No rub. Lungs: Diminished at the right base. Clear to auscultation. Abdomen: +BS. Extremities: No edema. No cyanosis. Limited neurological examination is without focal deficits. Pulses: Posterior tibial=2/4. Results & Data Vital Signs (Past 12 Hours) Vital Signs Temp Pulse Resp BP Pulse Ox O2 Del Method O2 Flow Rate 07/27/23 07:09 37.0 C 56 L 19 129/78 96 Nasal Cannula 3 07/27/23 03:43 37 C 51 L 16 129/78 95 Room Air 07/26/23 23:22 37 C 51 L 16 123/66 97 Room Air Laboratory Results Cardiac Enzymes 07/27/23 Range/Units 05:31 AST 112 H (13-39) U/L CBC 07/27/23 Range/Units 05:31 WBC 6.80 (4.8-10.8) K/ul RBC 3.36 L (4.20-5.40) M/uL Hgb 10.0 L (12.0-16.0) g/dl Hct 28.5 L (37.0-47.0) % Plt Count 239 D (130-400) K/uL Comprehensive Metabolic Panel 07/27/23 Range/Units 05:31 Sodium 137 (136-145) mmol/L Potassium 3.4 L (3.5-5.1) mmol/L Chloride 104 (98-107) mmol/L Carbon Dioxide 27 (21-32) mmol/L BUN 7 (6-23) mg/dl Creatinine 0.45 L (0.6-1.2) mg/dl Glucose 101 H (70-99(Fasting)) mg/dl Calcium 8.5 L (8.6-10.3) mg/dl AST 112 H (13-39) U/L ALT 127 H (7-52) U/L Alkaline Phosphatase 185 H (34-104) U/L Total Protein 6.0 (6.0-8.3) gm/dl Albumin 3.0 L (3.4-5.0) gm/dl Intake and Output 07/26/23 07/27/23 07/27/23 22:59 06:59 14:59 Intake Total 390 / 1440.25 500 / 1440.25 Output Total 3050 / 4950 500 / 4950 Balance -2660 / -3509.75 0 / -3509.75 Intake: IV 150 / 400.25 100 / 400.25 cefTRIAXone SODIUM 2,000 mg In 50 / 50 Dextrose 5 % Mini-B 50 ml @ 100 mls/hr IV Q24H [facility] Rx#: [id number] metroNIDAZOLE 500 mg In 100 ml 100 / 300 100 / 300 @ 100 mls/hr IV Q8H [facility] Rx#: [id number] Oral 240 / 1040 400 / 1040 Output: Urine 2850 / 4750 500 / 4750 Emesis 200 / 200 0 / 200 # Bowel Movements 0 / 0 Other: # Emeses 0 Weight 69.6 kg Weight Measurement Method Standing Scale
--- NOTE | 2023-07-27 11:21 | Hospitalist Progress Note ---
Date of Service July 27, 2023 Assessment & Plan (1) Sepsis: (2) Abdominal pain: (3) Rigors: (4) Hypomagnesemia: Plan 42yoF with no significant PMHx admitted with severe sepsis in the setting of endomyometritis. Severe sepsis Bacteremia Endomyometritis Pt was hypotensive, febrile with leukopenia on admission Recent uterine ablation procedure at [facility] Lactate wnl x2 Procalcitonin elevated at 1.15 Chest XR on admission with no acute infection, Repeat CXR on 07/[address] abd pelvis noting thickened endometrium in setting of recent uterine ablation Head CT noted chronic sinusitis and rhinitis Blood Cx 07/22/23 x2 sets growing Grp B strep Repeat BCx from 07/23/23 remain negative so far Was on Cefepime, Vancomycin and Clindamycin ID was consulted and recommended switch to Rocephin and Flagyl on 07/23 TTE did not show vegetation ORIENTATION AND MOBILITY SPECIALIST recs appreciated Antiemetic prn Last fever was on 07/24/23 at 7.47PM Procal trended down today at 3.43 from 6.35 yesterday Repeat blood cultures from yesterday negative so far Confirmed with ID Dr Hanley today for patient to do 2 weeks of current antibiotic therapy Once medically stable for dc, will arrange IV line for home IV antibiotic Stopped tramadol. Patient reports no pain control from this Reports toradol worked better Will continue toradol and monitor LFT mildly elevated May be related to infection However, will check Liver USS Acute respiratory failure with hypoxia Pneumonia Repeat chest xray on 07/24/23 noted pneumonia, possible aspiration Continue rocephin and flagyl as above CXR 07/26/23 noted some pleural effusion b/l Will continue IV lasix as needed Monitor electrolytes and replete as needed Bradycardia Asymptomatic sinus krystle on tele and EKG Cardiology evaluation noted. Sinus bradycardia thought to be vagally mediated with abdominal symptoms Monitor Anemia, acute blood loss Iron Deficiency anemia Hgb dropped from 12 to 9 Per pt having vaginal bleeding Stable. 10 today DVT prophylaxis: Lovenox SQ Diet: Regular Dispo: Home once medically stable Encourage activity/IS/Flutter I spent a total of 45 minutes coordinating, documenting and providing care for this patient excluding time spent in performance of separately billed services Admission and Anticipated Discharge Date Admission Date: July 22, 2023 Subjective Patient seen and examined. Reports tractable nausea and vomiting episodes overnight. Reported she get Zofran this morning which has helped so far. Has mild cough. Reports headache again today. Reports lower abdominal pain is improved about 3/10, not referred. Denies any chest pain, palpitation, dizziness or lightheadedness, fever or chills. Denies dysuria frequency urgency Physical Exam Constitutional: + well hydrated; no acute distress Eyes: PERRL, conjunctivae normal, anicteric sclerae ENMT: external ear and nose normal, oropharynx normal Respiratory: normal respiratory effort; no respiratory distress Diminished breath sounds especially at lung bases. No wheeze Cardiovascular: Rate/Rhythm: regular rhythm and + bradycardic Gastrointestinal (Abdomen): Inspection/Auscultation: abdomen normal to inspection and normal bowel sounds; abdomen not distended Nontender Musculoskeletal: no cyanosis or clubbing, extremities motor strength 5/5 Neurologic: PERRL, EOMI, accommodation nl, no face palsy, no dysarthria Psychiatric: A+Ox3, euthymic affect Results & Data Results & Data Vital Signs (Past 12 Hours) Vital Signs Temp Pulse Resp BP BP Pulse Ox O2 Del Method 07/27/23 10:52 37.0 C 54 L 19 117/73 97 Nasal Cannula 07/27/23 07:09 37.0 C 56 L 19 129/78 96 Nasal Cannula 07/27/23 03:43 37 C 51 L 16 129/78 95 Room Air 07/26/23 23:22 37 C 51 L 16 123/66 97 Room Air O2 Flow Rate 07/27/23 10:52 3 07/27/23 07:09 3 07/27/23 03:43 07/26/23 23:22 Laboratory Results Abnormal lab results 07/27/23 Range/Units 05:31 RBC 3.36 L (4.20-5.40) M/uL Hgb 10.0 L (12.0-16.0) g/dl Hct 28.5 L (37.0-47.0) % Potassium 3.4 L (3.5-5.1) mmol/L Creatinine 0.45 L (0.6-1.2) mg/dl Glucose 101 H (70-99(Fasting)) mg/dl Calcium 8.5 L (8.6-10.3) mg/dl AST 112 H (13-39) U/L ALT 127 H (7-52) U/L Alkaline Phosphatase 185 H (34-104) U/L Albumin 3.0 L (3.4-5.0) gm/dl Procalcitonin 3.43 H (0-0.5) ng/ml
[2023-07-27] MEDS: KETOROLAC TROMETHAMINE 15 MG/ML VIAL IV PRN (12:05)
[2023-07-27] MEDS: POTASSIUM CHLORIDE CRTAB 20 MEQ TABCR PO ONE (14:07)
[2023-07-27] MEDS: LORATADINE 10 MG TAB PO SCH (15:27)
[2023-07-27] MEDS: FAMOTIDINE 20 MG TAB PO SCH (15:55)
[2023-07-27] MEDS: FUROSEMIDE INJ 20 MG/2 ML VIAL IV ONE (15:55)
[2023-07-27] MEDS: POTASSIUM CHLORIDE CRTAB 20 MEQ TABCR PO STA (15:56)
--- NOTE | 2023-07-27 16:04 | Ultrasound Report ---
ABDOMINAL ULTRASOUND, RIGHT UPPER QUADRANT HISTORY: Elevated LFT, abd pain. COMPARISON: Abdomen and pelvis CT 07/22/2023. FINDINGS: Pancreas: The pancreas demonstrates a normal echotexture. Liver: Unremarkable. Gallbladder: The gallbladder is contracted. This may account for the gallbladder wall thickening hasmukh uring up to 5 mm. Negative sonographic Frost sign. There is trace fluid adjacent to the gallbladder fundus. CBD: 5 mm. Right kidney: No hydronephrosis. There is trace fluid adjacent to the kidney. IMPRESSION: 1. Diffuse gallbladder wall thickening. This may be due to to the contracted state of the gallbladder . There are no gallstones identified. 2. Trace fluid adjacent to the gallbladder fundus and kidney. 3. Normal liver. ACT 112: Negative or not required by law. Electronically signed by: Tim Pulido M.D. 07/27/2023 4:02 PM
[2023-07-28 07:59] LABS: Hematocrit (blood only) 33.6 % (37.0-47.0); Hemoglobin 11.4 g/dl (12.0-16.0); Mean Corpuscular Hemoglobin 29.3 pg (25.0-34.0); Mean Corpuscular Hgb Conc 33.9 g/dL (32.0-36.0); Mean Corpuscular Volume 86.4 fL (80.0-100.0); Mean Platelet Volume 10.2 fL (9.4-12.4); Platelet Count 380 K/uL (130-400); RDW Coefficient of Variation 13.3 % (11.5-14.5); RDW Standard Deviation 41.9 fL (36.4-46.3); Red Blood Count 3.89 M/uL (4.20-5.40); White Blood Count 9.99 K/ul (4.8-10.8)
[2023-07-28 08:16] LABS: Albumin Level 3.2 gm/dl (3.4-5.0); Bilirubin,Total 0.7 mg/dl (0.2-1.0); Calcium 8.7 mg/dl (8.6-10.3); Creatinine Clr Calc Pharmacy 141.5 ml/min; Est GFR (African American) 140.3 ml/min; Est GFR (Non-African American) 121.1 ml/min; Globulin 3.1 gm/dl (2.5-4.0); Potassium 4.1 mmol/L (3.5-5.1); Total Protein 6.3 gm/dl (6.0-8.3)
[2023-07-28] MEDS ORDERED: DOCUSATE SODIUM/SENNA 50/8.6MG TAB PO PRN (09:41)
--- NOTE | 2023-07-28 11:05 | Hospitalist Progress Note ---
Date of Service July 28, 2023 Assessment & Plan (1) Sepsis: (2) Abdominal pain: (3) Rigors: (4) Hypomagnesemia: Plan 42yoF with no significant PMHx admitted with severe sepsis in the setting of endomyometritis. Severe sepsis Bacteremia Endomyometritis Pt was hypotensive, febrile with leukopenia on admission Recent uterine ablation procedure at [facility] Lactate wnl x2 Procalcitonin elevated at 1.15 Chest XR on admission with no acute infection, Repeat CXR on 07/[address] abd pelvis noting thickened endometrium in setting of recent uterine ablation Head CT noted chronic sinusitis and rhinitis Blood Cx 07/22/23 x2 sets growing Grp B strep Repeat BCx from 07/23/23 remain negative so far Was on Cefepime, Vancomycin and Clindamycin ID was consulted and recommended switch to Rocephin and Flagyl on 07/23 TTE did not show vegetation DIAMOND DRILLER recs appreciated Antiemetic prn Last fever was on 07/24/23 at 7.47PM Procal trended down at 3.43 from 6.35 Repeat blood cultures negative so far On 07/27/23, I confirmed with ID Dr Hanley for patient to do 2 weeks of current antibiotic therapy Once medically stable for dc, will arrange IV line for home IV antibiotic Reports pain is better controlled and resolving with toradol LFT elevated Abdominal CT from 07/22/2023 did not show any abnormality in liver or gallbladder. Liver ultrasound from 07/27/2023 noted diffuse gallbladder wall thickening which may be due to contracted state of gallbladder, no gallstones. Trace fluid adjacent to the gallbladder fundus and kidney. Normal liver. Elevated LFT may be due to congestion. Monitor Acute respiratory failure with hypoxia Pneumonia Repeat chest xray on 07/24/23 noted pneumonia, possible aspiration Continue rocephin and flagyl as above CXR 07/26/23 noted some pleural effusion b/l Will give IV Lasix 20 mg today. Monitor fluid intake and output. Continue IS/F Monitor electrolytes and replete as needed Bradycardia Asymptomatic sinus krystle on tele and EKG Cardiology evaluation noted. Sinus bradycardia thought to be vagally mediated with abdominal symptoms Improving with control of abd symptoms Anemia, acute blood loss Iron Deficiency anemia Hgb dropped from 12 to 9 Stable. 11 today DVT prophylaxis: Lovenox SQ Diet: Regular Dispo: Home once medically stable I spent a total of 45 minutes coordinating, documenting and providing care for this patient excluding time spent in performance of separately billed services Admission and Anticipated Discharge Date Admission Date: July 22, 2023 Subjective Patient seen and examined. Reports cough is improved, dry mouth. Reports no headache this morning. Reports nausea has been well-controlled with Zofran as needed. No vomiting since yesterday. Still has lower abdominal pain which is about 2/10 today. No fevers, chills. Reports feeling better today. Currently on room air during my exam Physical Exam Constitutional: + well hydrated; no acute distress Eyes: PERRL, conjunctivae normal, anicteric sclerae ENMT: external ear and nose normal, oropharynx normal Respiratory: normal respiratory effort; no respiratory distress Improved air movement Cardiovascular: Rate/Rhythm: regular rate and regular rhythm S1-S2 Gastrointestinal (Abdomen): Inspection/Auscultation: abdomen normal to inspection and normal bowel sounds; abdomen not distended Musculoskeletal: no cyanosis or clubbing, extremities motor strength 5/5 Neurologic: PERRL, EOMI, accommodation nl, no face palsy, no dysarthria Psychiatric: A+Ox3, euthymic affect Results & Data Results & Data Vital Signs (Past 12 Hours) Vital Signs Temp Pulse Resp BP Pulse Ox O2 Del Method O2 Flow Rate 07/28/23 07:31 36.6 C 62 18 107/65 94 Nasal Cannula 3 07/28/23 03:45 36.5 C 53 L 18 129/81 96 Room Air 07/28/23 00:00 37.8 C H 78 18 117/70 92 Room Air Laboratory Results Abnormal lab results 07/28/23 Range/Units 07:38 RBC 3.89 L (4.20-5.40) M/uL Hgb 11.4 L (12.0-16.0) g/dl Hct 33.6 L (37.0-47.0) % Creatinine 0.50 L (0.6-1.2) mg/dl AST 265 H (13-39) U/L ALT 232 H (7-52) U/L Alkaline Phosphatase 208 H (34-104) U/L Albumin 3.2 L (3.4-5.0) gm/dl
[2023-07-28] MEDS: FUROSEMIDE INJ 20 MG/2 ML VIAL IV ONE (12:25)
[2023-07-28 13:00] LABS: Appearance Urine Clear (Clear); Bacteria Urine Automated None Seen (None Seen); Bilirubin Urine Negative (Negative); Blood Urine 2+ (Negative); Cast Urine Automated 0-2 /lpf (0-2); Color Urine Yellow; Glucose Urine UA Negative (Negative); Ketones Urine Negative (Negative); Leukocyte Esterase Urine 2+ (Negative); Nitrite Urine Negative (Negative); Protein Urine Negative (Negative); RBC Urine Automated 0-2 /hpf (0-2); Specific Gravity Urine 1.007 (1.000-1.030); Urobilinogen Urine Negative (Negative); WBC Urine Automated 21-50 /hpf (0-5); pH Urine 6.5 (4.5-7.5)
[2023-07-29 08:16] LABS: Hematocrit (blood only) 33.5 % (37.0-47.0); Hemoglobin 11.2 g/dl (12.0-16.0); Mean Corpuscular Hemoglobin 29.6 pg (25.0-34.0); Mean Corpuscular Hgb Conc 33.4 g/dL (32.0-36.0); Mean Corpuscular Volume 88.6 fL (80.0-100.0); Mean Platelet Volume 10.1 fL (9.4-12.4); Platelet Count 423 K/uL (130-400); RDW Coefficient of Variation 13.8 % (11.5-14.5); RDW Standard Deviation 44.3 fL (36.4-46.3); Red Blood Count 3.78 M/uL (4.20-5.40); White Blood Count 12.37 K/ul (4.8-10.8)
[2023-07-29 08:26] LABS: Albumin Globulin Ratio 1.1 (0.9-2); Albumin Level 3.2 gm/dl (3.4-5.0); Bilirubin,Total 0.5 mg/dl (0.2-1.0); Calcium 8.7 mg/dl (8.6-10.3); Creatinine Clr Calc Pharmacy 140.3 ml/min; Est GFR (African American) 140.3 ml/min; Est GFR (Non-African American) 121.1 ml/min; Total Protein 6.2 gm/dl (6.0-8.3)
--- NOTE | 2023-07-29 11:34 | Hospitalist Progress Note ---
Date of Service July 29, 2023 Assessment & Plan (1) Sepsis: (2) Abdominal pain: (3) Rigors: (4) Hypomagnesemia: Plan 42yoF with no significant PMHx admitted with severe sepsis in the setting of endomyometritis. Severe sepsis Bacteremia Endomyometritis Pt was hypotensive, febrile with leukopenia on admission Recent uterine ablation procedure at 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 Liver ultrasound from 07/27/2023 noted diffuse gallbladder wall thickening which may be due to contracted state of gallbladder, no gallstones. Trace fluid ad jacent to the gallbladder fundus and kidney. Normal liver. Elevated LFT may be due to congestion. Trending down today Acute respiratory failure with hypoxia Pneumonia Repeat chest xray on 07/24/23 noted pneumonia, possible aspiration Continue rocephin and flagyl as above CXR 07/26/23 noted some pleural effusion b/l Got some doses of lasix over past few days Off oxygen Bradycardia Asymptomatic sinus krystle on tele and EKG Cardiology evaluation noted. Sinus bradycardia thought to be vagally mediated with abdominal symptoms Improved with control of abd symptoms Anemia, acute blood loss Iron Deficiency anemia Hgb dropped from 12 to 9 Stable now. 11.2 today DVT prophylaxis: Lovenox SQ Diet: Regular Dispo:Plan to dc tomorrow once home IV antibiotic is set up I spent a total of 45 minutes coordinating, documenting and providing care for this patient excluding time spent in performance of separately billed services Admission and Anticipated Discharge Date Admission Date: July 22, 2023 Subjective Patient seen and examined. Reports cough is minimal and dry Reports nausea has been well-controlled with Zofran as needed. No abd pain No fevers, chills. Remains on room air No new complaints Physical Exam Constitutional: + well hydrated; no acute distress Eyes: PERRL, conjunctivae normal, anicteric sclerae ENMT: external ear and nose normal, oropharynx normal Respiratory: normal respiratory effort; no respiratory distress Auscultation: lungs clear to auscultation bilaterally Cardiovascular: Rate/Rhythm: regular rate and regular rhythm S1 S2 Gastrointestinal (Abdomen): Inspection/Auscultation: abdomen normal to inspection and normal bowel sounds; abdomen not distended Nontender Musculoskeletal: no cyanosis or clubbing, extremities motor strength 5/5 Neurologic: PERRL, EOMI, accommodation nl, no face palsy, no dysarthria Psychiatric: A+Ox3, euthymic affect Results & Data Results & Data Vital Signs (Past 12 Hours) Vital Signs Temp Pulse Resp BP Pulse Ox O2 Del Method 07/29/23 11:24 36.7 C 72 18 97/62 L 95 Room Air 07/29/23 07:26 36.9 C 76 18 115/72 94 Room Air 07/29/23 02:34 36.9 C 60 18 123/77 94 Room Air Laboratory Results Abnormal lab results 07/28/23 07/29/23 Range/Units Unknown 07:18 WBC 12.37 H (4.8-10.8) K/ul RBC 3.78 L (4.20-5.40) M/uL Hgb 11.2 L (12.0-16.0) g/dl Hct 33.5 L (37.0-47.0) % Plt Count 423 H (130-400) K/uL Creatinine 0.50 L (0.6-1.2) mg/dl BUN/Creatinine Ratio 22.0 H (10-20) AST 139 H (13-39) U/L ALT 184 H (7-52) U/L Alkaline Phosphatase 178 H (34-104) U/L Albumin 3.2 L (3.4-5.0) gm/dl Urine Blood 2+ H (Negative) Ur Leukocyte Esterase 2+ H (Negative) Urine WBC (Auto) 21-50 H (0-5) /hpf U Epithel Cells (Auto) 6-10 H (0-2) /hpf
[2023-07-29] MEDS: cefTRIAXone SODIUM 2,000 MG in DEXTROSE 5 % MINI-B 50 ML IV SCH (13:33)
[2023-07-29] MEDS: IBUPROFEN 200 MG TAB PO PRN (15:57)
[2023-07-30 07:53] LABS: Hematocrit (blood only) 33.7 % (37.0-47.0); Hemoglobin 11.2 g/dl (12.0-16.0); Mean Corpuscular Hemoglobin 29.3 pg (25.0-34.0); Mean Corpuscular Hgb Conc 33.2 g/dL (32.0-36.0); Mean Corpuscular Volume 88.2 fL (80.0-100.0); Mean Platelet Volume 9.9 fL (9.4-12.4); Platelet Count 513 K/uL (130-400); RDW Coefficient of Variation 13.9 % (11.5-14.5); RDW Standard Deviation 44.2 fL (36.4-46.3); Red Blood Count 3.82 M/uL (4.20-5.40); White Blood Count 11.28 K/ul (4.8-10.8)
[2023-07-30 08:21] LABS: Albumin Level 3.2 gm/dl (3.4-5.0); BUN Creatinine Ratio 23.5 (10-20); Bilirubin,Total 0.5 mg/dl (0.2-1.0); Calcium 8.8 mg/dl (8.6-10.3); Est GFR (African American) 139.4 ml/min; Est GFR (Non-African American) 120.3 ml/min; Globulin 3.2 gm/dl (2.5-4.0); Potassium 4.2 mmol/L (3.5-5.1); Total Protein 6.4 gm/dl (6.0-8.3)
--- NOTE | 2023-07-30 14:02 | Discharge Summary ---
Date of Service July 30, 2023 Admission HPI Per Admitting Provider Ms. Oates is a 42 year old female that presents to the ED today after experiencing abdominal pain and rigors. She recently underwent a uterine ablation and D/C with IUD removal at [facility] on 07/16 without complications. After her procedure she felt okay and only had light bleeding. Sunday morning at 03 100 she was experiencing intense abdominal pain mid abdomen down to her suprapubic area and could not get out of bed feeling so wiped. She did manage to get to the bathroom but lowered herself to all fours as she was nauseous and dizzy. She feels as though she did pass out but did not lose consciousness which led her to proceed to [facility] ED where she received a full workup including blood work, an abdominal CT and transvaginal ultrasound. Her WBC on 07/19 was 12.95 and today is 2.08; atypical presentation. Urinalysis revealed some bacteria and WBC. She was released from the ED and started on Oxycodone for pain. She only has taken one Oxycodone. She reports that she felt increasing pain and decided to return to the ED, coming to [facility]. 07/19 TVUS: Uterus: Uterus measures 10 x 4.5 x 5.6 cm. Mildly complex fluid in the endometrial cavity. Endometrial stripe 1.1 cm. Right ovary/adnexa: Right ovary 3.7 x 3.1 x 2.1 cm. Corpus luteum cyst measuring 2 x 1.7 x 1.8 cm and right ovary Left ovary/adnexa: Left ovary 2.7 x 2.9 x 1.8 cm. Appearance unremarkable. Intraperitoneal space: Small amount of fluid in the cul-de-sac may be physiologic Urinary bladder: Normal. IMPRESSION: 1. Slightly complex fluid in uterine cavity may be associated with recent procedure. Recommend clinical correlation. 2. Right ovarian cyst likely corpus luteum cyst. 3. There is a small amount of free pelvic fluid present, likely physiologic in a premenopausal female. Upon arrival, she was tachycardic low 100's, hypotensive mid 90's systolic and febrile 103 with an elevated procalcitonin of 1.15. Hypomg+ 1.5. HCG and Troponin negative. Denies tobacco, alcohol and recreational drug use. Today, Abdominal/pelvic CT suggestive of thickening endometrium s/p ablation and an ovarian cyst but no perforation noted. ED discussed with COAT AGENT Dr. Arzola who suggested IV abx. She has shown improvement since her arrival and is no longer having rigors or fever. She is AAOx4, pale, dry mucus membranes, S1S2, no murmer, no swelling, CTA lung sounds, Abdomen distended but soft, tender on palpation, active bowel sounds x4, burning sensation with urination, no N/V/D while here. No recent falls or trauma. Pt will be admitted for further evaluation and management of severe sepsis presentation. Known PCN allergy. 2 LNSB given in ED, will continue LR @ 125ml/hour, Cefepime, Clindamycin, and Vancomycin initiated in the ED. Will continue IV abx and adjust based on culture results. MRSA screen and lactate ordered. Replace Mg+ and recheck in AM. Tylenol for recurrent fevers. Will r/o flu. Will trend BMP/CBC. Suspect patient could have bacteremia given rigors as well. Admission Exam Per Admitting Provider Neuro: AAOx4, PERRLA, no aphagia, memory changes, CNII-XII grossly intact HEENT: head normocephalic, dry mucus membranes CV: S1/S2, (-) M/G/R, (-) edema, cap refill < 3 seconds Resp: Lungs CTA in all tom. On RA GI: Abdomen distended, soft and tender, Ax4 bowel sounds, (-) CVA tenderness Musculoskeletal: 5/5 B/L UE strength, 5/5 B/L LE strength. No gait disturbance Skin: (-) rashes , (-) erythema. Psych: euthymic mood Principal Diagnosis Sepsis Streptococcal bacteremia Endomyomyetritis Discharge Exam Constitutional + well hydrated; no acute distress Eyes PERRL, conjunctivae normal, anicteric sclerae ENMT external ear and nose normal, oropharynx normal Respiratory normal respiratory effort; no respiratory distress Auscultation: lungs clear to auscultation bilaterally Cardiovascular RRR, no murmur, no edema Gastrointestinal (Abdomen) Inspection/Auscultation: abdomen normal to inspection and normal bowel sounds; abdomen not distended Musculoskeletal no cyanosis or clubbing, extremities motor strength 5/5 Neurologic PERRL, EOMI, accommodation nl, no face palsy, no dysarthria Psychiatric A+Ox3, euthymic affect Discharge Data Allergies Allergy/AdvReac Type Severity Reaction Status Date / Time amoxicillin Allergy Unknown hives Unverified 07/30/23 10:25 codeine Allergy Unknown palpitation Unverified 07/30/23 10:25 s doxycycline Allergy Unknown lip Unverified 07/30/23 10:25 swelling erythromycin base Allergy Unknown gi upset Unverified 07/30/23 10:25 levofloxacin Allergy Unknown tendonitis Unverified 07/30/23 10:25 Penicillins Allergy Unknown hives Unverified 07/30/23 10:25 Consultations 07/22/23 13:58 ED Decision to Admit Stat 07/22/23 15:35 Consult Gynecology Routine 07/23/23 11:17 Consult Infectious Diseases Routine 07/26/23 10:19 Consult Cardiology Routine Ordered Studies 07/22/23 12:05 CT abd pelvis IV con only Stat 07/22/23 23:16 CT head/brain wo con Stat 07/27/23 10:28 US liver Routine Hospital Course (1) Sepsis: (2) Hypomagnesemia: (3) Rigors: (4) Abdominal pain: Plan 42 year old woman with no significant PMHx admitted with severe sepsis in the setting of endomyometritis. Severe sepsis Bacteremia Endomyometritis Pt was hypotensive, febrile with leukopenia on admission Recent uterine ablation procedure at [facility] On admission, Lactate wnl x2. Procalcitonin elevated at 1.15, peaked at 6.35 and trended down Chest XR on admission with no acute infection, Repeat CXR on 07/[address] abd pelvis noting thickened endometrium in setting of recent uterine ablation Head CT noted chronic sinusitis and rhinitis Blood Cx 07/22/23 x2 sets growing Grp B streptococcus Repeat BCx from 07/23/23 and 07/26/23 remain negative so far Was on Cefepime, Vancomycin and Clindamycin ID was consulted and recommended switch to Rocephin and Flagyl on 07/24/23 TTE did not show any vegetation Infectious disease recommended 2 weeks of IV ceftriaxone and po flagyl USS guided IV placed today and patient discharged on IV ceftriaxone 2g q24h till 08/05/23 Weekly CMP, CBC while on antibiotics. PCP to follow up result Home antibiotic infusion set up by CM LFT elevated Abdominal CT from 07/22/2023 did not show any abnormality in liver or gallbladder. Liver ultrasound from 07/27/2023 noted diffuse gallbladder wall thickening which may be due to contracted state of gallbladder, no gallstones. Trace fluid adjacent to the gallbladder fundus and kidney. Normal liver. Elevated LFT may be due to congestion. LFTs trending donw Acute respiratory failure with hypoxia Pneumonia Repeat chest xray on 07/24/23 noted pneumonia, possible aspiration CXR 07/26/23 noted some pleural effusion b/l Got some doses of lasix over past few days Weaned off oxygen Bradycardia Had asymptomatic sinus krystle on tele and EKG while inpatient TTE showed normal EF 55-60%, mild MR, Mild TR. mitral valve leaflets are thickened but open well Cardiology evaluation noted. Sinus bradycardia thought to be vagally mediated with abdominal symptoms Bradycardia resolved with improvement of GI symptoms Anemia, acute blood loss Iron Deficiency anemia Hgb dropped from 12 on admissino to 9 Stable now. 11.2 today Total Time Total Time Spent Total Time Spent (In Minutes): 50 Total Time Includes: Examination of the Patient, Discharge Planning, Medication Reconciliation and Other Discharge Plan Discharge Items Patient Disposition: Home - Home Health Services Reason For Visit: FEVER/RIGORS Discharge Diagnosis: Sepsis Streptococcal bacteremia Endomyomyetritis Activity: Resume your previous activity Non-emergency contact: Primary Care Provider Call non-emergency contact if: you have any medication questions Follow-up/Referrals: Arthur Lawrence MD [Primary Care Provider] - (Date & Time 08/02/2023 1:40 PM Provider Lashae Moser, Department Family [facility] ) Diet: Regular Addtl Attending Provider Instructions: Mrs Oates You came to the hospital with abdominal pain and rigors. You were treated for the above mentioned diagnoses. You are being discharged on IV ceftriaxone daily until 08/05/23. You will do labs while on the the antibiotics and follow up results with your Family Doctor. It was a pleasure taking care of you. Pending Studies at Discharge: No Stand-Alone Forms: My [facility], Work/School Release, Smoking Cessation Medications and DC Order Prescriptions: New ibuprofen 200 mg Tablet 400 mg PO Q6H PRN (Reason: pain) 7 Days Qty: 28 0RF ondansetron 4 mg tablet,disintegrating 4 mg PO TID PRN (Reason: nausea and vomiting) 5 Days Qty: 15 0RF metronidazole 500 mg tablet 500 mg PO Q8H Qty: 18 0RF Continued ASCORBIC ACID (VITAMIN C) 500 MG tablet 500 mg PO DAILY Qty: 0 B-COMPLEX W/ FOLIC ACID (B COMPLEX) 1 TAB tablet 1 tab PO DAILY Qty: 0 MULTIPLE VITAMIN (MULTIVITAMIN) 1 TAB tablet 1 tab PO DAILY Qty: 0 Folic Acid 400 MCG tablet 400 mcg PO DAILY Qty: 0 multivitamin Tablet 1 tab PO QAM Probiotic 3 billion cell Capsule 3,000 mmu cells PO QAM Rx Instructions: administer with a meal Discharge Orders: Discharge Order (Routine); Ordered 07/30/23 Ordered By: Abbie Huang Admission Data Admit Date/Time: 07/22/23 14:09 Attending Provider: Abbie Huang I. Admit Provider: Anuj Adorno Primary Care Provider: Arthur Lawrence Other Providers: Anuj Adorno; Lary Arzola Carlos M.; Katie Bateman; Joseph Alford I.; Haroon Hanley II; Anastasiya Amezquita; Virgilio Street; Sharan Burleson.; Sina Babcock; Austin Scott; Rafita Gonzalez; [facility],Home Healthcare
[2023-07-31 05:02] LABS: Babesia microti DNA Not Detected (Not Detected)
--- NOTE | 2023-08-01 17:06 | Coding Query ---
CODING QUERY To promote full compliance with coding requirements relating to patient care, provider participation is requested in all cases of bean weigher uncertainty. Please assist us with the question(s) below: Coding Question(s): Pt adm with Sepsis,endomyometritis. Procedures done 4/ for uterine ablation, D&C & IUD removal. Cardiology Consult stated pt admitted with strep bacteremia in setting of endomyometritis after IUD removal. Please check below the phrase that describes the sepsis status post above stated procedure. Thanks for your help! ANNITA Martinez [facility] Physician's Response(s): ____x Pt was admitted for Sepsis/bacteremia related to the above procedure(s) Sepsis/bacteremia was not related to the above procedures prior to admission Other: (please document): Principal Diagnosis: "that condition established after study, to be chiefly responsible for occasioning the admission of the patient to the hospital for care." Co-Existing Principal Diagnosis: "when two or more diagnoses equally meet the criteria for principal diagnosis as determined by the circumstances of admission, diagnostic work up, and/or therapy provided, and the Alphabetic Index, Tabular List, or another coding guideline does not provide sequencing direction, any one of the diagnoses may be sequenced first." "When the physician has documented what appears to be a current diagnosis in the body of the record, but has not included the diagnosis in the final diagnostic statement, the physician should be asked whether the diagnosis should be added." (Source Coding Clinic 2 QTR90. p3-4) NICOLED
== END 2023-07-30 15:00 | disposition home health service (06) | DRG 862 ==
LOC: ED 11:31 → SUATTDRO 14:09 → MERGE 14:09 → EDINP 14:09 → 2N 15:46 → 2S 21:06